=== PATIENT | female | born 2000 | race Caucasian/White ===

== ENCOUNTER → 2019-01-17 08:40 | Outpatient (CLI) | payer MEDICAID, SELFPAY ==
[2016-10-10 14:56] VITALS: BMI 29.7
[2019-01-17 09:01] LABS: Hemoglobin 11.8 g/dl (12.0-15.0); Mean Corp Hgb Conc 31.9 g/gl (32-36); Mean Corpuscular Hgb 26.9 pg (27.0-32.0); Mean Corpuscular Volume 84.5 fL (81-99); Platelet Count 330 K/mm3 (150-450); RBC Distribution Width CV 13.5 % (11.6-14.6); RBC Distribution Width SD 41.6 fl (35.1-43.9); Red Blood Count 4.38 M/mm3 (4.2-5.4); White Blood Count 9.5 K/mm3 (4.4-11.0)
[2019-01-17 09:06] LABS: Scan Indicated on CBC? Y/N NO
== END ==
PROVIDERS: Family Provider Pediatrics; PCP Pediatrics; Referring Provider Otolaryngology; Visit Provider Otolaryngology
DX: Z01.812 Encounter for preprocedural laboratory examination (principal)
CPT/HCPCS: 36415; 85027

== ENCOUNTER → 2019-01-22 15:44 | Outpatient (CLI) | payer MEDICAID, SELFPAY ==
[2016-10-10 14:56] VITALS: BMI 29.7
--- NOTE | 2019-01-21 12:14 | TONS_PTH ---
PATIENT: ADELA BURTON LOC: [facility] U#:[id number] AGE/SX: / ROOM: RE01/22/[address]: Dr. Anthony Shah MD : 2000 BED: DIS: SPEC #: [id number] RECD: 01/22/19 15:24 STATUS: WAQAS TACO #: [id number] REENA: 01/21/19 12:[address]: Anthony Shah DEPT: SURGICAL PATHOLOGY RECD BY: Brien Pleitez ENTERED: 01/23/19 10:28 SP TYPE: TONSILS OTHR DR: Dr. Micheal Meyers MD [facility] Tissues: Tonsil, NOS Procedures: Surgery Specimen Level III HEADER OPERATION: Tonsillectomy PRE-OP DIAGNOSIS: Chronic tonsillitis TISSUE SUBMITTED: Tonsils, right pinned MICROSCOPIC DIAGNOSIS Right and left tonsils, bilateral tonsillectomies: Benign lymphoid hyperplasia, consistent with chronic tonsillitis. Organisms consistent with actinomyces. AM:lázaro 01/24/19 MICROSCOPIC DESCRIPTION Slides are reviewed. GROSS DESCRIPTION Received is one container labeled with the patient's name and designated tonsils - pin on right are two tonsils that in aggregate weigh 8 gm. The right tonsil has a pin on it and measures 3 x 2 x 1 cm. The left tonsil measures 3 x 2 x 1.5 cm. Both tonsils are similar in appearance. The external surfaces are pink-fuller, smooth, glistening and somewhat lobulated. Focally they are hemorrhagic, granular and bear cautery artifact. Serial cross sections through the tonsils reveal normal tonsillar architecture. Sections are submitted in two cassettes as follows: 1 - right tonsil, 2 - left tonsil. / MERLY:lázaro 01/23/19 TC:5 CPT: 02123 x2
== END ==
PROVIDERS: Family Provider Pediatrics; PCP Pediatrics; Referring Provider Otolaryngology; Visit Provider Otolaryngology
DX: J35.01 Chronic tonsillitis (principal)
CPT/HCPCS: 88304

== ENCOUNTER → 2019-08-25 07:58 | Outpatient (CLI) | payer MEDICAID, SELFPAY ==
[2016-10-10 14:56] VITALS: BMI 29.7
--- NOTE | 2019-08-25 08:00 | CT_ITS ---
STUDY: CTA RIGHT UPPER EXTREMITIES REASON FOR EXAM: Female, 19 years old. Swelling and pain to right arm for 4 to 5 months. No history of trauma. History of fibromyalgia. RADIATION DOSAGE (If Supplied By Facility): CTDIvol = ( 18.38 ) mGy, DLP = ( 1629.91 ) mGycm TECHNIQUE: Axial CT angiography, multi-detector data acquisition was obtained from the neck base through the hands following intravenous administration of IV 100mL Isovue-370 100. mm axial images and MIP images were reconstructed from the axial data set. Post-processing of the angiographic images was performed, with multiplanar reformation and 3D reconstruction. Individualized dose optimization techniques were used for this CT. COMPARISON: None. FINDINGS: THORACIC AORTA: Normal visualized ascending thoracic aorta, without soft or calcific atherosclerotic plaque formation, luminal stenosis or aneurysm. Normal visualized aortic arch, without soft or calcific atherosclerotic plaque formation, or luminal stenosis or aneurysm. Normal branching pattern of the great vessels. Normal visualized descending thoracic aorta, without soft or calcific atherosclerotic plaque formation, luminal stenosis or aneurysm. Normal origins of the brachiocephalic, left common carotid, and left subclavian arteries from the aortic arch, without soft or calcific atherosclerotic plaque formation or luminal stenosis. Normal visualized common carotid arteries, without soft or calcific atherosclerotic plaque formation or luminal stenosis. Irregular noncalcified airspace opacity measuring 2.5 x 1.3 cm adjacent to the pleural surface superior segment right lower lobe axial image 61 series 3 as well as more inferior noncalcified lung nodule measuring 0.8 x 0.8 cm axial image 81 series 3. Normal visualized mediastinum. Normal supraclavicular region without lymphadenopathy or soft tissue mass. Normal axillary region, without lymphadenopathy or soft tissue mass. Normal visualized osseous structures without a demonstrated destructive process. RIGHT UPPER EXTREMITY: Normal subclavian artery, without soft or calcific atherosclerotic plaque formation, luminal stenosis or aneurysm. Normal visualized right vertebral artery arising from the right subclavian artery. Normal axillary artery, without soft or calcific atherosclerotic plaque formation, luminal stenosis or aneurysm. Normal brachial artery, without soft or calcific atherosclerotic plaque formation, luminal stenosis or aneurysm. Evaluation of the more distal arterial system is limited due to motion artifact in the forearm, wrist and hand. Osseous structures are normal. No fracture or dislocation. No demonstrated destructive process. Soft tissues are unremarkable. No focal fluid collections. No collections of air. CT/CTA Upper Ext W/WO Contrast IMPRESSION: Pleural-based right upper lobe 2.5 cm airspace opacity as well as 0.8 cm right lower lobe noncalcified lung nodule. These findings are probably secondary to infection. Correlate with CT of the chest. Comparison to prior chest x-rays would be helpful if available. Otherwise negative CT of the right upper extremity. Forearm and hand grossly normal however fine detail limited due to motion artifact. Osseous structures are normal. No focal fluid collections to suggest an abscess. No appreciable soft tissue swelling. Electronically Signed: Shadi Bradford MD at 0:07 EDT , Service support ,
== END ==
PROVIDERS: Family Provider Pediatrics; PCP Pediatrics; Referring Provider Surgery Vascular Surgery; Visit Provider Surgery Vascular Surgery
DX: R20.2 Paresthesia of skin (principal); M79.89 Other specified soft tissue disorders; M79.601 Pain in right arm; D18.00 Hemangioma unspecified site
CPT/HCPCS: 73206; Q9967

== ENCOUNTER → 2019-09-15 09:22 | Outpatient (CLI) | payer MEDICAID, SELFPAY ==
[2019-09-03 14:27] VITALS: BMI 49.6
--- NOTE | 2019-09-15 09:24 | US_ITS ---
STUDY: THYROID ULTRASOUND REASON FOR EXAM: Female, 19 years old. Enlarged thyroid gland. TECHNIQUE: Ultrasound evaluation of the thyroid was performed with real-time and static clifton-scale imaging. COMPARISON: None. FINDINGS: RIGHT LOBE: The right lobe of the thyroid gland measures 4.5 cm x 1.8 cm x 1.6 cm. There is a homogeneous echotexture. There are no demonstrated solid, cystic or complex lesions. LEFT LOBE: The left lobe of the thyroid gland measures 4.2 cm x 1.5 cm x 1.6 cm. There is a homogeneous echotexture. There is a solid well-defined hypoechoic nodule measuring 9 mm x 7 mm x 6 mm in the midportion of the left lobe of the thyroid. This may represent a colloid. ISTHMUS: The isthmus measures 3.0 mm. The regional lymph nodes are normal. US/Thyroid IMPRESSION: 9 mm x 7 mm x 6 mm well-defined hypoechoic solid nodule in the midportion of the left lobe of the thyroid. Electronically Signed: Juan Howell, at 15:13 EST , Service support ,
== END ==
PROVIDERS: Family Provider Internal Medicine; PCP Internal Medicine; Referring Provider Internal Medicine; Visit Provider Internal Medicine
DX: E04.1 Nontoxic single thyroid nodule (principal)
CPT/HCPCS: 76536

== ENCOUNTER → 2019-10-24 10:54 | Outpatient (CLI) | payer MEDICAID, SELFPAY ==
[2019-10-24 10:35] VITALS: BMI 49.6
[2019-10-24 13:40] LABS: Absolute Lymphocyte Count 3.17 X10^3/uL (0.83-4.51); Absolute Neutrophil Count 4.8 X10^3/uL (2.0-7.7); Basophil# 0.04 X10^3/uL; Basophil% 0.5 % (0-1); Eosinophils% 3.4 % (0-5); Hematocrit 39.8 % (37-47); Hemoglobin 12.5 g/dL (12.0-15.0); Lymphocyte # 3.17 X10^3/ul (4.0); Lymphocyte % 35.8 % (19-41); Mean Corp Hgb Conc 31.4 g/dL (32-36); Mean Corpuscular Hgb 26.4 pg (27.0-32.0); Mean Corpuscular Volume 84.1 fL (81-99); Mean Platelet Vol. 10.6 fl (6.2-12.0); Monocyte# 0.49 X10^3/uL; Monocyte% 5.5 % (0-10); NRBC Flagged by Analyzer 0 % (0-5); Neutrophil # 4.83 X10^3/uL (2.7-7.7); Neutrophil % 54.6 % (47-70); Platelet Count 338 K/mm3 (150-450); RBC Distribution Width CV 13.5 % (11.6-14.6); RBC Distribution Width SD 41.8 fl (35.1-43.9); Red Blood Count 4.73 M/mm3 (4.2-5.4); White Blood Count 8.9 K/mm3 (4.4-11.0)
[2019-10-24 13:55] LABS: ALB/GLOB Ratio 0.7 RATIO (0.9-2.4); AST(SGOT) 10 U/L (15-37); Alanine Aminotransfer ALT/SGPT 25 U/L (13-56); Albumin, Serum 3.2 g/dL (3.2-5.0); Alkaline Phosphatase 117 U/L (45-117); Anion Gap 6 (5-15); BUN 12 mg/dL (7-18); BUN/Creat Ratio 16.2 RATIO (10-20); Calcium,Total 8.6 mg/dL (8.5-10.1); Chloride 106 mmol/L (98-107); Creatinine, Serum 0.74 mg/dL (0.55-1.02); EST Glomerular Filtration Rate 106 mL/min (>60); Est Glom Filt Rate - Afr Amer 128 mL/min (>60); Globulin 4.4 g/dL (2.2-4.2); Glucose 99 mg/dL (74-106); Potassium 3.9 mmol/L (3.5-5.1); Protein, Total 7.6 g/dL (6.4-8.2); Sodium Level 137 mmol/L (136-145); T4 Free Direct 1.21 ng/dL (0.76-1.46)
== END ==
PROVIDERS: Family Provider Internal Medicine; PCP Internal Medicine; Visit Provider Internal Medicine
DX: Z13.29 Encounter for screening for other suspected endocrine disorder (principal); K21.9 Gastro-esophageal reflux disease without esophagitis; D64.9 Anemia, unspecified
CPT/HCPCS: 36415; 80053; 84439; 84443; 85025

== ENCOUNTER → 2019-11-17 07:06 | Outpatient (CLI) | payer MEDICAID, SELFPAY ==
[2019-09-03 14:27] VITALS: BMI 49.6
[2019-10-24 10:35] VITALS: BMI 49.6
--- NOTE | 2019-11-17 07:07 | CT_ITS ---
STUDY: CT CHEST WITHOUT CONTRAST REASON FOR EXAM: Female, 19 years old. LUNG NODULE SEEN ON PREV CT RADIATION DOSAGE (If Supplied By Facility): CTDIvol = ( 20.15 ) mGy, DLP = ( 725.01 ) mGycm TECHNIQUE: Transaxial imaging was performed without the administration of intravenous contrast material. Multiplanar coronal and sagittal images were reformatted. Individualized dose optimization techniques were used for this CT. COMPARISON: Comparison is made with prior CT scan of the right upper extremity. FINDINGS: The previously seen airspace opacity in the posterior aspect of the right upper lobe is not seen at this time. There is no demonstrated pleural abnormality. Normal heart and pericardium. Normal mediastinum. Normal hilar regions. Normal unenhanced pulmonary arteries. Normal aorta arch and descending thoracic aorta. Normal osseous structures. There is no demonstrated abnormality of the visualized upper abdomen. CT/Chest without Contrast IMPRESSION: Normal unenhanced CT Chest examination. Electronically Signed: Juan Howell, at 15:57 EST , Service support ,
== END ==
PROVIDERS: Family Provider Internal Medicine; PCP Internal Medicine; Referring Provider Internal Medicine; Visit Provider Internal Medicine
DX: R93.89 Abnormal findings on diagnostic imaging of other specified body structures (principal); R91.1 Solitary pulmonary nodule
CPT/HCPCS: 71250

== ENCOUNTER → 2019-12-10 10:06 | Outpatient (CLI) | payer MEDICAID, SELFPAY ==
[2019-12-10 09:30] VITALS: BMI 49.5
--- NOTE | 2019-12-10 10:08 | EKG12_ITS ---
Test Reason : PALPS/CP Blood Pressure : / mmHG Vent. Rate : 092 BPM Atrial Rate : 092 BPM P-R Int : 138 ms QRS Dur : 092 ms QT Int : 354 ms P-R-T Axes : 014 012 018 degrees QTc Int : 437 ms Normal sinus rhythm Normal ECG Confirmed by PURVI MUÑIZ ([id number]), movie editor NEO WESTON ([id number]) on 12/12/2019 9:50:11 AM Referred By: Servando Maria Confirmed By:PURVI MUÑIZ
[2019-12-10 11:41] LABS: Anion Gap 6 (5-15); BUN 11 mg/dL (7-18); BUN/Creat Ratio 15.6 RATIO (10-20); Calcium,Total 9.5 mg/dL (8.5-10.1); Chloride 107 mmol/L (98-107); EST Glomerular Filtration Rate 112 mL/min (>60); Est Glom Filt Rate - Afr Amer 136 mL/min (>60); Glucose 98 mg/dL (74-106); Magnesium 2.2 mg/dL (1.6-2.6); Potassium 4.1 mmol/L (3.5-5.1); Sodium Level 138 mmol/L (136-145); T4 Free Direct 1.09 ng/dL (0.76-1.46); Thyroid Stim Hormone (TSH) 6.37 uIU/mL (0.358-3.74)
== END ==
PROVIDERS: PCP Internal Medicine; Referring Provider Nurse Practitioner Family; Visit Provider Nurse Practitioner Family
DX: R00.2 Palpitations (principal); R07.9 Chest pain, unspecified
CPT/HCPCS: 36415; 80048; 83735; 84439; 84443; 93005

== ENCOUNTER → 2019-12-17 09:03 | Outpatient (CLI) | payer MEDICAID, SELFPAY ==
[2019-12-10 16:41] VITALS: BMI 49.6
== END ==
PROVIDERS: PCP Internal Medicine; Referring Provider Nurse Practitioner Family; Visit Provider Nurse Practitioner Family
DX: R00.2 Palpitations (principal); R07.9 Chest pain, unspecified
CPT/HCPCS: 93225; 93226

== ENCOUNTER 2020-04-08 07:22 | Day surgery (SDC) | payer MEDICAID, SELFPAY ==
[2019-12-10 16:41] VITALS: BMI 49.6
[2020-03-23 13:11] VITALS: BMI 49.6
[2020-04-06 15:20] LABS: Hematocrit 38.8 % (37-47); Hemoglobin 12.4 g/dL (12.0-15.0); Mean Corpuscular Hgb 26.8 pg (27.0-32.0); Mean Platelet Vol. 10.6 fl (6.2-12.0); Platelet Count 361 K/mm3 (150-450); RBC Distribution Width CV 13.2 % (11.6-14.6); RBC Distribution Width SD 39.4 fl (35.1-43.9); Red Blood Count 4.62 M/mm3 (4.2-5.4); White Blood Count 9.5 K/mm3 (4.4-11.0)
[2020-04-06 15:39] LABS: T4 Free Direct 1.19 ng/dL (0.76-1.46)
[2020-04-06 15:41] LABS: Thyroid Stim Hormone (TSH) 2.42 uIU/mL (0.358-3.74)
[2020-04-06 15:42] LABS: Prothrombin Time (Protime)PT. 12.6 SECONDS (11.7-14.9)
[2020-04-06 15:43] LABS: Partial Thromboplast Time 28.9 Seconds (24.1-36.2)
--- NOTE | 2020-04-07 21:56 | PCM.HPOB.BLA ---
- Problem List (1) Chronic pelvic pain in female Status: Chronic Comment: r/o endometriosis History and Physical Date of Admission: 04/08/20 Date: 04/06/2020 Name: YULIANA BURTON Age: 19 Date of : 2000 HISTORY OF PRESENT ILLNESS: On 04/06/2020, Yuliana Burton, a 19 year old female 0 0 0 0 0, presented for: -- Pre-Op -- Yuliana is here for pre-op exam. Consents are signed, will review further with Dr GRIDER surgical risks and benefits. LMT as above. Yuliana is here for preop visit for scheduled diagnostic laparoscopy to r/o endometriosis. She has a hx dysmenorrhea with chronic pelvic pain despite extended cycle OCP. niki ALLERGIES: No Known Drug Allergies, Omnicef and Hives and/or rash MEDICATIONS HISTORY: Current medications prescribed by our practice are: 1. Apri 0.15 mg-0.03 mg tablet, One pill by mouth once a day for 3 wks then start new pack Patient is also takin. lansoprazole 30 mg capsule,delayed release, 1 PO QD 2. levothyroxine 100 mcg tablet, One pill by mouth once a day REVIEW OF SYSTEMS: GENERAL - Denies fever, or chills SKIN - Denies skin changes EYES - Denies visual changes EARS - Denies difficulty hearing NOSE - Denies nasal congestion or bleeding MOUTH - Denies sore throat or difficulty swallowing NECK - Denies pain or swelling RESPIRATORY - Denies shortness of breath or wheezing CARDIOVASCULAR - Denies palpitations or chest pain GASTROINTESTINAL - Denies nausea, vomiting, diarrhea, constipation GENITOURINARY - Denies dysuria, frequency of urination, incontinence of urine MUSCULOSKELETAL - Denies joint or muscle pain NEUROLOGICAL - Denies localized numbness or weakness PSYCHIATRIC - Denies depression or anxiety ENDOCRINE - Denies heat or cold intolerance, weight loss or gain HEMATO-IMMUNOLOGIC - Denies excesive bleeding with cuts PAST HISTORY: Breast/Ovarian/Colon Cancers - Mother had Uterine Cancer Illnesses - fibromyalgia, bilateral renal duplication, hypothyroidism, thyroid nodule and Lorena's Thyroiditis Accidents - None History of Abnormal PAPS - na Hospitalizations - None MENSTRUAL HISTORY: LMP Known?- ApproximateAmount/Duration - 6 days, Regularity - regular, Frequency - monthly days, LMP - 08/26/19, Age Onset Menarche - 10 PAST PREGNANCIES: Total Pregnancies - 0; Full Term Pregnancies - 0; Premature - 0; Abortions, Induced - 0; Abortions, Spontaneous - 0; Ectopics - 0; Multiple Births - 0; Living Children - 0 FAMILY HISTORY: Mother - FH: Endometriosis; Mother - Neoplasm of uterus; Mother - FH: Hypertension; MaternalGrandparent - Heart disorder; PaternalGrandparent - Leukemia; PaternalGrandparent - Heart disorder; SOCIAL HISTORY: Alcohol Use - denies drinking Smoking - denies smoking Diet - no particular diet Lifestyle - moderate stress lifestyle Exercise - none Seat Belt Use - always Employer - [employer] Job Description - critical care nurse specialist Illicit Drug Use - denies use of street drugs Sexual Activity - sexually inactive Residence - Lives wit parents Hours Worked - PT Control - OCP not active PHYSICAL EXAMINATION BP- 130/82 Sitting, Left arm, large cuff Temp- 98.7 Taken Orally Weight- 351.00 lbs Height- 70.00 inch BMI:50.47 CONSTITUTIONAL - NAD, well nourished, and well developed SKIN - No rash, lesions, or ulcers HEENT - normocephalic, atraumatic, sclerae anicteric LUNGS - clear to ausculation bilaterally CARDIAC - RRR, S1, S2 no m/r/g ABDOMEN - obese, soft, nontender, nondistended, unable to assess for hepatosplenomegaly NEUROLOGICAL - normal gait, normal balance, normal motor PSYCHIATRIC - A and O to time, place, person, mood and affect Laboratory Tests 04/07/20 04/06/20 04/06/20 Range/Units 10:00 15:04 15:04 WBC (4.4-11.0) K/mm3 RBC (4.2-5.4) M/mm3 Hgb (12.0-15.0) g/dL Hct (37-47) % MCV (81-99) fL MCH (27.0-32.0) pg MCHC (32-36) g/dL RDW Std Deviation (35.1-43.9) fl RDW Coeff of Brittani (11.6-14.6) % Plt Count (150-450) K/mm3 MPV (6.2-12.0) fl PT (11.7-14.9) SECONDS INR APTT (24.1-36.2) Seconds TSH 2.42 (0.358-3.74) uIU/mL Free T4 1.19 (0.76-1.46) ng/dL COVID-19 (MARYANA) Not Detected (Not Detect) Blood Type Antibody Screen 04/06/20 04/06/20 04/06/20 Range/Units 15:01 15:00 15:00 WBC 9.5 (4.4-11.0) K/mm3 RBC 4.62 (4.2-5.4) M/mm3 Hgb 12.4 (12.0-15.0) g/dL Hct 38.8 (37-47) % MCV 84.0 (81-99) fL MCH 26.8 L (27.0-32.0) pg MCHC 32.0 (32-36) g/dL RDW Std Deviation 39.4 (35.1-43.9) fl RDW Coeff of Brittani 13.2 (11.6-14.6) % Plt Count 361 (150-450) K/mm3 MPV 10.6 (6.2-12.0) fl PT 12.6 (11.7-14.9) SECONDS INR 1.0 APTT 28.9 (24.1-36.2) Seconds TSH (0.358-3.74) uIU/mL Free T4 (0.76-1.46) ng/dL COVID-19 (MARYANA) (Not Detect) Blood Type O POSITIVE Antibody Screen NEGATIVE ASSESSMENT: PLAN BY DIAGNOSIS: 1. Dysmenorrhea, Unspecified, Excessive And Frequent Menstruation With Irregular Cycle, Lower Abdominal Pain and Unspecified Suspect endometriosis Prior US unremarkable Plan for diagnostic laparoscopy and EUA, surgical treatment of endometriosis as indicated. Will refer to advanced excision specialist if Stage III/IV disease evident Reviewed preop prep, anticipated hospitalization and postop recovery course Procedural r/b/i/a reviewed Pt in agreement with plan Preop labs ordered, COVID19 testing pending
[2020-04-08] VITALS (8 sets, daily range): BP systolic 130–160; BP diastolic 59–107; PULSE 106–133; RESP 16–24; TEMP 36.1–37.2; O2SAT 94–100; BMI 49.6
--- NOTE | 2020-04-08 | MISC_PTH ---
PATIENT: ADELA BURTON [place] [facility] [place][id number] AGE/SX: 19/F ROOM: RE04/08/[address]: Dr. Fay Montez MD : 2000 BED: DIS: 04/08/2020 SPEC #: [id number] RECD: 04/08/20 13:12 STATUS: WAQAS RELyndsey #: [id number] REENA: 04/08/20 00:[address]: Fay Hager DEPT: SURGICAL PATHOLOGY RECD BY: Andrade Mclean ENTERED: 04/08/20 13:13 [place] [facility] [place]: Dr. Raji Edwards MD Tissues: Perineum, NOS Procedures: Surgery Specimen Level IV HEADER OPERATION: Diagnostic laparoscopy PRE-OP DIAGNOSIS: Dysmenorrhea; excessive and frequent menstruation TISSUE SUBMITTED: Anterior pelvis sac peritoneum MICROSCOPIC DIAGNOSIS Anterior pelvic sac peritoneum, biopsy: Consistent with endometriosis with associated dystrophic microcalcifications. See comment. AM:lázaro 04/09/20 COMMENT Immunohistochemistry ([id number]) supports the above diagnosis. Case has been reviewed in consultation with Dr. Mak who concurs with the above diagnosis. IDC:[email or web address] MICROSCOPIC DESCRIPTION Slides are reviewed. GROSS DESCRIPTION Received in fixative is one container labeled with the patient's name and designated anterior pelvis sac peritoneum. The specimen consists of one irregular fragment of fuller soft tissue that measures 1.4 x 1 x 0.2 cm. The specimen is totally submitted in one cassette. / MERLY:lázaro 04/08/20 TC:3 CPT: 97011
--- NOTE | 2020-04-08 | IMM_PTH ---
PATIENT: ADELA BURTON LOC: [facility] [place] U#:[id number] AGE/SX: 19/F ROOM: RE04/08/[address]: Dr. Fay Montez MD : 2000 BED: DIS: 04/08/2020 SPEC #: [id number] RECD: 04/09/20 11:49 STATUS: WAQAS REQ #: [id number] REENA: 04/08/20 00:[address]: Fay Hager DEPT: IMMUNOHISTOCHEMISTRY RECD BY: Randi Roa ENTERED: 04/09/20 11:51 SP TYPE: IMMUNO OTHR DR: Dr. Raji Edwards MD Tissues: Peritoneum, NOS Procedures: Devon Ret (add) CEA (add) CK5-6 (add) CK8 (add) P53 (add) Vimentin (initial) PHYSICIAN & INSTITUTION [place] [id number] SPECIMEN INFORMATION: Tissue Source: Anterior pelvic sac peritoneum Clinical Info: Dysmenorrhea, excessive and frequent menstruation Specimen Number: [id number] CPT code: 69160, 12848 x5 METHODOLOGY: Deparaffinized sections of prefer/formalin-fixed tissue or PAP/DQ stained slides are incubated with monoclonal/polyclonal antibodies/oligonucleotide probes. Localization is made via biotin free immunoperoxidase method. Appropriate controls are performed and reacted as expected. Results on target cell population are indicated in the following table: RESULTS: ANTIBODY / CLONE RESULT CEA (11-7/TF-3HB-1) negative Vimentin (V9) positive CK8 (32kkhqH77) positive P53 (DO-7) negative CALRET (polyclonal) negative CK5-6 (D5 & 1684) negative These tests were developed and their performance characteristics determined by [facility]. They may not have been cleared or approved by the U.S. Food and Drug Administration. The FDA has determined that such clearance or approval is not necessary. The above immunohistochemical/dualISH markers are ordered and reviewed by the Pathologist. INTERPRETATION: Anterior pelvic sac peritoneum, biopsy: Consistent with endometriosis. AM:lázaro 04/12/20
[2020-04-08 07:57] LABS: Internal QC Validated? YES +Cl - CLEAR BKGD; Pregnancy, Urine Negative Negative
[2020-04-08] MEDS: Lactated Ringers 1,000 ML 100 ML IV ×2 (08:01→10:00)
[2020-04-08] MEDS: Bupivacaine Mpf 0.5% 30 ML VIAL (09:35)
--- NOTE | 2020-04-08 10:40 | DCINST_ITS ---
- Discharge Diagnoses Current Active Problems: Endometriosis Reason(s) for Visit for Discharge Instructions: Laparoscopy You will use the following diet at home:: No restrictions Your food should be the consistency of: Regular Discharge Activity: Return to Normal Activity, May not drive while taking narcotic pain medications., May Shower, - - No tub bath for 1-2 weeks May resume sexual activity in: 4-6 weeks Lifting Restrictions: 10-20 lb Call your doctor if you observe: Fever of 101 or Higher, Inability to urinate, Inability to have a bowel movement, Using more than one pad per hour, Shortness of breath, Chest pain, Calf discomfort, Uncontrolled pain Suture Line Care: Avoid Pulling/Pushing Remove Dressing in (days):: 1 - remove steri stips in 5 days Cleanse incision/area with: Soap & Water Instructions: ED Endometriosis Allergies/Adverse Reactions: Allergies cefdinir [From Omnicef] Allergy (Intermediate, Verified 04/08/20 07:50) Hives Medications to take at Discharge lansoprazole 30 mg capsule,delayed release 30 mg PO DAILY 09/03/19 levothyroxine 100 mcg tablet 100 mcg PO DAILY #30 tab 03/23/20 Desogestrel-Ethinyl Estradiol [Enskyce 28 Tablet] 1 ea PO DAILY 04/01/20 Ibuprofen 600 mg PO TID PRN #30 tab 04/08/20 Oxycodone [Oxyir] 5 mg PO Q6H PRN PRN 7 Days #12 tablet 04/08/20 The following prescriptions were given: Ibuprofen 600 mg PO TID PRN #30 tab PRN Reason: pain Transmission Status[facility]. Oxycodone [Oxyir] 5 mg PO Q6H PRN PRN 7 Days #12 tablet PRN Reason: severe pain Transmission Status: Received by [facility] . Orders to be completed after discharge: CORONAVIRUS 19, MARYANA Time Frame: 04/07/20, Facility: [facility], Location: Laboratory Primary Care Physician: Raji Edwards MD [Primary Care Provider] - Test Results: Test results from this visit will be discussed in further detail at your follow- up appointment, if applicable. Please Follow Up With: Fay Malloy MD When: 2-4 weeks
--- NOTE | 2020-04-08 10:46 | PCM.OPRPT ---
Problem List (1) Chronic pelvic pain in female Status: Chronic Comment: r/o endometriosis Report of Operation Date of Procedure: 04/08/20 Pre-Operative Diagnosis: 1. chronic pelvic pain. 2. dysmenorrhea. 3. endometriosis Post-Operative Diagnosis: same Surgery/Procedure Performed:: Diagnostic laparoscopy. Peritoneal biopsy. Excision of endometriosis Description of Surgical Findings:: Stage III endometriosis Thickened anterior culdesac adhesion Left adnexal adhesions Vesicular peritoneal lesion at anterior culdesac peritoneum, left posterior broad ligament Red endometriotic lesions in left ovarian fossa Sigmoid peritoneal adhesions shearer printed circuit boards: Ciera Laguna Type of Anesthesia:: General, Local Anesthesiologist: Rafal Lees Specimen's removed: 1. anterior culdesac peritoneum Estimated Blood Loss (mL): 10 Fluids Replaced: 1600 ml Description of Procedure: Indications: 19-year-old nulligravida with a history of chronic pelvic pain and and dysmenorrhea. She has been treated with oral contraceptive pills including extended cycle OCP with little improvement of symptoms. She was advised to proceed with diagnostic laparoscopy to rule out endometriosis. I reviewed with her surgical risks, benefits, indications and alternatives. Patient desired to proceed. Informed consent was obtained. Procedure: The patient was brought to the operating room and signed was performed. She is placed in a dorsal supine position and induced under general anesthesia. She was then repositioned into dorsolithotomy and examination under anesthesia was performed. The abdomen and perineum were prepped and draped in sterile fashion. Patient was placed into high lithotomy and Jaeger catheter placed into the bladder. A speculum was placed cervix grasped at the anterior cervical lip using a single-tooth tenaculum. The uterus sounded to 9 cm. A ZUMI uterine manipulator was placed and secured. The tenaculum was removed from the cervix as was the tenaculum. Patient was placed into low lithotomy attention turned to the abdomen. Half percent Marcaine was injected at at the umbilicus and an inferior umbilical incision was made. The Veress needle was introduced with successful hanging drop test and no aspirate. The abdomen was insufflated to 12 mmHg. The Veress needle was removed and a 5 mm port was placed under laparoscopic guidance confirming entry into the abdominal cavity. On initial view it appeared that the omentum had encased the abdominal peritoneum. A clearing within the omentum leading to the pelvis was identified and the laparoscope was used to perforate the filmy adhesion entering the pelvis. On observation the uterus was mobile however there were left ovarian fossa adhesions with red endometriosis lesions, left sigmoid fusion, anterior cul-de-sac thickened adhesions with vesicular endometriosis as well as multiple sites of vesicular peritoneal endometriosis. Marcaine was placed suprapubically and incision was made here. A 5 mm port was placed suprapubically. I proceeded with anterior cul-de-sac peritoneal excision for biopsy. The ear cul-de-sac peritoneum was bluntly and sharply dissected with excision. The excisional bed was irrigated and suctioned with good hemostasis. Interceed was placed at the site. The abdomen was again inspected and it appeared that the omental adhesion had lysed over the course of the procedure I suspect due to movement of the umbilical trocar. The procedure was complete. The abdomen was desufflated and the patient was given several large breaths for further desufflation. The trocars were removed. The skin was closed by the [employer] under my supervision using 4-0 Monocryl. Steri-Strips and OpSite were placed over the incisions. The ZUMI uterine manipulator was removed was the Jaeger catheter. The patient was placed into dorsal supine, awakened, extubated and transferred to the recovery room without complication. Sponge and needle counts were correct x2. - Complications None - Admit VTE Documentation VTE Present on Admission: No VTE Mechan Device Prophylaxis: SCD's VTE Pharm Prophylaxis ordered?: Yes
[2020-04-08] MEDS: Heparin Injection (Vial) 5,000 UNIT/ML VIAL 5000 UNIT SC (11:21)
== END 2020-04-08 13:20 | disposition home or self-care (01) ==
LOC: SDC 07:23 → AC 07:23
PROVIDERS: Anesthesiology; Internal Medicine Endocrinology, Diabetes & Metabolism; PCP Internal Medicine; Referring Provider Obstetrics & Gynecology; Visit Provider Obstetrics & Gynecology
PROC: (CPT 49320; principal; 2020-04-08 08:45)
DX: N80.3 Endometriosis of pelvic peritoneum (principal); N94.6 Dysmenorrhea, unspecified; N92.0 Excessive and frequent menstruation with regular cycle; G89.29 Other chronic pain; E06.3 Autoimmune thyroiditis; M79.7 Fibromyalgia; Z11.59 Encounter for screening for other viral diseases
CPT/HCPCS: 58662; 81025; 84439; 84443; 85027; 85610; 85730; 86850; 86900; 86901; 87635; 88305; 88341; 88342; G2023; J7120; J2405; U0003

== ENCOUNTER → 2020-04-19 | Outpatient (CLI) | payer MEDICAID, SELFPAY ==
[2020-04-08 07:51] VITALS: BMI 49.6
== END | disposition home or self-care (01) ==
LOC: LABSPEC 16:51
PROVIDERS: PCP Internal Medicine; Visit Provider Obstetrics & Gynecology
DX: R35.0 Frequency of micturition (principal)
CPT/HCPCS: 87086; 87088

== ENCOUNTER → 2020-08-30 13:18 | Outpatient (CLI) | payer MEDICAID, SELFPAY ==
[2020-08-30 13:06] VITALS: BMI 47.8
[2020-08-30 15:04] LABS: Hematocrit 37.5 % (37-47); Hemoglobin 12.2 g/dL (12.0-15.0)
[2020-08-30 15:37] LABS: Thyroid Stim Hormone (TSH) 5.25 uIU/mL (0.358-3.74)
== END ==
PROVIDERS: PCP Internal Medicine; Visit Provider Internal Medicine Endocrinology, Diabetes & Metabolism
DX: E03.8 Other specified hypothyroidism (principal); E06.3 Autoimmune thyroiditis; E04.1 Nontoxic single thyroid nodule; N92.0 Excessive and frequent menstruation with regular cycle
CPT/HCPCS: 36415; 84443; 85014; 85018

== ENCOUNTER → 2020-10-26 13:54 | Outpatient (CLI) | payer MEDICAID, SELFPAY ==
[2020-08-30 13:06] VITALS: BMI 47.8
--- NOTE | 2020-10-26 13:55 | US_ITS ---
STUDY: THYROID ULTRASOUND REASON FOR EXAM: Female, 20 years old. F/U NODULE, HX OF RAFAEL''S TECHNIQUE: Ultrasound evaluation of the thyroid was performed with real-time and static clifton-scale imaging. COMPARISON: 09/15/2019. FINDINGS: RIGHT LOBE: The right lobe of the thyroid gland measures 4.5 x 1.9 x 1.6 cm. There is a homogeneous echotexture. There is a 4 mm hypoechoic probable colloid cyst. LEFT LOBE: The left lobe of the thyroid gland measures 4.4 x 1.5 x 1.4 cm. There is a homogeneous echotexture. There is a 5 mm hypoechoic nodule, smaller than prior study. ISTHMUS: The isthmus measures 3 mm . The regional lymph nodes are normal. US/Thyroid IMPRESSION: Normal size thyroid gland with bilateral subcentimeter nodules. Annual follow-up would be adequate. Electronically Signed: Casimiro Nunez MD at 16:09 EST , Service support ,
== END ==
PROVIDERS: PCP Internal Medicine; Referring Provider Internal Medicine Endocrinology, Diabetes & Metabolism; Visit Provider Internal Medicine Endocrinology, Diabetes & Metabolism
DX: E03.8 Other specified hypothyroidism (principal); E06.3 Autoimmune thyroiditis; E04.1 Nontoxic single thyroid nodule; N92.0 Excessive and frequent menstruation with regular cycle
CPT/HCPCS: 76536

== ENCOUNTER → 2021-03-17 14:46 | Outpatient (CLI) | payer MEDICAID, SELFPAY ==
[2021-02-09 14:26] VITALS: BMI 51.4
--- NOTE | 2021-03-17 14:55 | CT_ITS ---
STUDY: CT MAXILLOFACIAL SINUSES REASON FOR EXAM: Female, 20 years old. SINUSITIS RADIATION DOSAGE (If Supplied By Facility): CTDIvol = ( 33.06 ) mGy, DLP = ( 850.38 ) mGycm TECHNIQUE: The patient was scanned in a multi detector CT scanner. High resolution axial imaging was performed without the administration of intravenous contrast material. Sagittal and coronal images were reconstructed. Individualized dose optimization techniques were used for this CT. COMPARISON: None. FINDINGS: FRONTAL SINUSES: Normal aeration, without mucosal inflammatory disease. ETHMOIDAL SINUSES: Normal aeration, without mucosal inflammatory disease. MAXILLARY SINUSES: Normal aeration, without mucosal inflammatory disease. SPHENOIDAL SINUSES: Normal aeration, without mucosal inflammatory disease. There is patency of the bilateral maxillary infundibuli with normal uncinate processes, ethmoid bullae, and hiatus semilunaris. Normal bilateral middle turbinates. Normal bilateral inferior turbinates. Normal midline nasal septum. There is patency of the bilateral nasal airways. The visualized osseous structures are normal. The visualized bilateral orbital contents are normal. CT/Sinus/Facial Bone IMPRESSION: Normal CT examination of the maxillofacial sinuses. Electronically Signed: Juan Howell MD at 15:09 EDT , Service support ,
== END ==
PROVIDERS: PCP Internal Medicine; Referring Provider Otolaryngology; Visit Provider Otolaryngology
DX: J32.9 Chronic sinusitis, unspecified (principal)
CPT/HCPCS: 70486

== ENCOUNTER → 2021-05-03 13:01 | Outpatient (CLI) | payer MEDICAID, SELFPAY ==
[2021-04-05 08:11] VITALS: BMI 51.4
[2021-05-03 16:00] LABS: T4 Free Direct 1.21 ng/dL (0.76-1.46)
== END ==
PROVIDERS: PCP Internal Medicine; Referring Provider Internal Medicine Endocrinology, Diabetes & Metabolism; Visit Provider Internal Medicine Endocrinology, Diabetes & Metabolism
DX: E03.8 Other specified hypothyroidism (principal); E06.3 Autoimmune thyroiditis
CPT/HCPCS: 36415; 84439; 84443

== ENCOUNTER 2021-05-07 17:24 | Emergency (ER) | payer MEDICAID, SELFPAY ==
[2021-04-05 08:11] VITALS: BMI 51.4
[2021-05-07 17:26] VITALS: BP 161/116; PULSE 67; RESP 12; TEMP 36.1; O2SAT 98; BMI 52.0
--- NOTE | 2021-05-07 17:54 | EX.ED.DYSGE1 ---
HPI History of Present Illness Chief Complaint: Other, Pain/Inj Informant: patient Onset/Context/Timing Onset: Days (3) Context: Gradual Onset Timing: Continuous Quality: Dull, aching, sharp at times Location: Left wrist, right calf Worsened by: Grasping Relieved by: Nothing Narrative Narrative: Patient presents with pain in her left wrist and right calf that has been getting worse over the past 2 days. Patient states she had surgery at the main [facility] of [facility] on 05/04/2021 for appendectomy and endometriosis. Patient states that they tried [address] an art line at the time of surgery. Patient admits to some tingling in her left wrist and hand. Patient states she has some weakness when she tries to grasp things. Family states that when they remove the art line they applied some pressure for a few seconds and then applied a blood pressure cuff to measure her blood pressure over the radial artery. At that time, the bleeding became worse and a pressure dressing was applied. Patient states she called the [facility] Careline and was told that if her symptoms last for more than 48 hours after her surgery she should go to the emergency department for evaluation. [facility] Medical History Anemia Anxiety Back problem BILATERAL RENAL DUPLICATION Chronic neck pain Endometriosis determined by laparoscopy Fibromyalgia Frequent headaches GERD (gastroesophageal reflux disease) Muscle spasm Home Medications ibuprofen 600 mg PO TID PRN #30 tab 04/08/20 [Rx Last Taken Unknown] fluoxetine 20 mg capsule 20 mg PO DAILY #30 cap 05/06/20 [Rx Last Taken Unknown] norethindrone acetate 0.5 mg-ethinyl estradiol 2.5 mcg tablet 2 tab PO DAILY tab 08/30/20 [History Last Taken Unknown] naproxen 500 mg tablet 500 mg PO BID PRN #60 tab 11/24/20 [Rx Last Taken Unknown] propranolol 80 mg capsule,24 hr,extended release 80 mg PO DAILY #90 cap 01/12/21 [Rx Last Taken Unknown] pantoprazole 40 mg tablet,delayed release 40 mg PO DAILY #90 tablet 02/09/21 [Rx Last Taken Unknown] cyclobenzaprine 10 mg tablet 5 - 10 mg PO HS PRN #30 tab 04/05/21 [Rx Last Taken Unknown] levothyroxine 125 mcg tablet 125 mcg PO DAILY #90 tab 05/05/21 [Rx Last Taken Unknown] Allergy/AdvReac Type Severity Reaction Status Date / Time cefdinir [From Omnicef] Allergy Intermediate Hives Verified 05/07/21 17:26 Family History Other Anemia Angina pectoris Anxiety Arthritis Autoimmune disorder Bleeding disorder Depression Heart disease High cholesterol Hypertension Myocardial infarction Uterine cancer Surgical History History of appendectomy History of laparoscopy History of tonsillectomy Social History Smoking Status: Never smoker alcohol intake: never substance use type: does not use what type of physical activity do you participate in: none ROS ROS ED Constitutional Constitutional ED: Denies chills or fever(s) Eyes Eyes: Denies blurry vision or change in vision ENT ENT ED: Denies rhinorrhea or sore throat Cardiovascular Cardiovascular: Denies chest pain or palpitations Respiratory/Chest Respiratory/Chest: Denies cough or dyspnea Gastrointestinal Gastrointestinal: Denies nausea or vomiting Genitourinary Genitourinary ED: Denies dysuria or hematuria Musculoskeletal Musculoskeletal: Denies back pain or neck pain Integumentary Denies abscess or rash Neurologic Neurologic: Reports paresthesias and weakness; Denies headache(s) Allergic/Immunologic Allergic/Immunologic ED: Denies mouth swelling or urticaria EXAM Physical Exam Const Vital Signs: 05/07/21 17:26 Temperature 97 F L Temperature Source Temporal Pulse Rate 67 Respiratory Rate 12 Blood Pressure 161/116 H Blood Pressure Mean 131 Pulse Ox 98 Oxygen Delivery Method Room Air Positive well nourished, well developed and obese General Appearance ED: well developed Nutritional Appearance: obese Neck supple and no JVD Extremity Extremity Narrative: There is some mild tenderness over the volar and radial aspects of the left wrist. There is edema and ecchymosis over this area. Radial pulses are equal bilaterally. Ulnar pulse is good on the left. Efrain's test was negative. Sensation was slightly diminished to light touch in all digits of the left hand. There is some mild pain over the left forearm. There is no induration. There is no evidence of compartment syndrome compartments are soft. There is good range of motion of the left wrist and elbow. There is some mild tenderness over the right distal calf. There is some edema. There is no ecchymosis. Pedal pulses are equal bilaterally. There are no sensory deficits. Neuro oriented x3 and CN's II-XII intact bilaterally Neuro Narrative: Nurse Anesthesia Program Director strength is slightly diminished on the left secondary to pain. Sensation was slightly limited to light touch in the left hand in all dermatomes. Sensorium / Orientation: alert Psych mental status grossly normal MDM MDM MDM Narrative Medical decision making narrative: Patient was advised that a venous duplex of her right calf and ultrasound of her left radial artery was unable to be performed at this time due to the holiday weekend. Her wrist pain is not due to an acute arterial occlusion. CBC and comprehensive metabolic profile were obtained and were within normal limits. PT with INR and PTT were obtained and were normal. Patient was given a dose of Lovenox here. Patient was instructed to return on Sunday for venous duplex of her right lower extremity. Patient understands and is agreeable with the plan. All questions were answered. Lab Data Attestation: I reviewed the patient's lab results. Labs: Laboratory Results - last 24 hr 05/07/21 05/07/21 05/07/21 18:00 18:00 18:00 WBC 10.6 RBC 4.19 L Hgb 11.3 L Hct 35.8 L MCV 85.4 MCH 27.0 MCHC 31.6 L RDW Std Deviation 40.9 RDW Coeff of Brittani 13.2 Plt Count 333 MPV 11.0 Immature Gran % (Auto) 0.300 Neut % (Auto) 62.1 Lymph % (Auto) 30.3 Emanuel % (Auto) 5.0 Eos % (Auto) 1.9 Baso % (Auto) 0.4 Absolute Neuts (auto) 6.6 Absolute Lymphs (auto) 3.22 Nucleated RBC % 0 PT 13.0 INR 1.0 APTT 30.6 Sodium 138 Potassium 4.7 Chloride 109 H Carbon Dioxide 23.0 Anion Gap 6 BUN 17 Creatinine 0.81 Estim Creat Clear Calc 122.80 Est GFR (MDRD) Af Amer 114 Est GFR (MDRD) Non-Af 94 BUN/Creatinine Ratio 21.0 H Glucose 84 Calcium 8.9 Total Bilirubin 0.80 AST 36 ALT 29 Alkaline Phosphatase 93 Total Protein 7.1 Albumin 3.5 Globulin 3.6 Albumin/Globulin Ratio 1.0 Discharge Plan Triage Chief Complaint: Other, Pain/Inj ED Provider: Rustam Ivey Dx/Rx/DC Orders Clinical Impression: Traumatic hematoma of left wrist, Pain of right calf Instructions: ED Soft Tissue Contusion, ED Muscle Strain, Extremity Prescriptions: No Action fluoxetine 20 mg capsule 20 mg PO DAILY Qty: 30 RF: 1 norethindrone ac-eth estradiol 0.5-2.5 mg-mcg tablet 2 tab PO DAILY RF: 0 naproxen 500 mg tablet 500 mg PO BID PRN (Reason: pain) Qty: 60 RF: 1 propranolol 80 mg capsule,extended release 24 hr 80 mg PO DAILY Qty: 90 RF: 1 pantoprazole 40 mg tablet,delayed release (DR/EC) 40 mg PO DAILY Qty: 90 RF: 1 cyclobenzaprine 10 mg tablet 5 - 10 mg PO HS PRN (Reason: muscle spasm) Qty: 30 RF: 0 ibuprofen 600 MG tablet 600 mg PO TID PRN (Reason: pain) Qty: 30 RF: 0 levothyroxine 125 mcg tablet 125 mcg PO DAILY Qty: 90 RF: 3 Other Ambulatory Orders: Venous Duplex US, Unilateral (Routine) Facility: [facility] - Location: [facility] Ordered By: Dr. Rustam Ivey Primary Care Provider: Raji Edwards Referrals: Raji Edwards MD [Primary Care Provider] - 3-5 Days Disposition Disposition: Home, Self Care
[2021-05-07 18:10] LABS: Absolute Lymphocyte Count 3.22 X10^3/uL (0.83-4.51); Absolute Neutrophil Count 6.6 X10^3/uL (2.0-7.7); Basophil# 0.04 X10^3/uL; Basophil% 0.4 % (0-1); Eosinophils% 1.9 % (0-5); Hematocrit 35.8 % (37-47); Hemoglobin 11.3 g/dL (12.0-15.0); Lymphocyte # 3.22 X10^3/ul (0.83-4.51); Lymphocyte % 30.3 % (19-41); Mean Corp Hgb Conc 31.6 g/dL (32-36); Mean Corpuscular Volume 85.4 fL (81-99); Monocyte# 0.53 X10^3/uL; NRBC Flagged by Analyzer 0 % (0-5); Neutrophil # 6.59 X10^3/uL (2.7-7.7); Neutrophil % 62.1 % (47-70); Platelet Count 333 K/mm3 (150-450); RBC Distribution Width CV 13.2 % (11.6-14.6); RBC Distribution Width SD 40.9 fl (35.1-43.9); Red Blood Count 4.19 M/mm3 (4.2-5.4); White Blood Count 10.6 K/mm3 (4.4-11.0)
[2021-05-07 18:21] LABS: Partial Thromboplast Time 30.6 Seconds (24.1-36.2)
[2021-05-07 18:42] LABS: AST(SGOT) 36 U/L (15-37); Alanine Aminotransfer ALT/SGPT 29 U/L (13-56); Albumin, Serum 3.5 g/dL (3.2-5.0); Alkaline Phosphatase 93 U/L (45-117); Anion Gap 6 (5-15); BUN 17 mg/dL (7-18); Calcium,Total 8.9 mg/dL (8.5-10.1); Chloride 109 mmol/L (98-107); Creatinine, Serum 0.81 mg/dL (0.55-1.02); EST Glomerular Filtration Rate 94 mL/min (>60); Est Glom Filt Rate - Afr Amer 114 mL/min (>60); Globulin 3.6 g/dL (2.2-4.2); Glucose 84 mg/dL (74-106); Potassium 4.7 mmol/L (3.5-5.1); Protein, Total 7.1 g/dL (6.4-8.2); Sodium Level 138 mmol/L (136-145)
[2021-05-07] MEDS: Enoxaparin 150 MG/ML Syringe SC (19:06)
== END 2021-05-07 19:10 | disposition home or self-care (01) ==
PROVIDERS: Emergency Provider Emergency Medicine; PCP Internal Medicine
DX: S60.212A Contusion of left wrist, initial encounter (principal); M79.661 Pain in right lower leg; K21.9 Gastro-esophageal reflux disease without esophagitis; X58.XXXA Exposure to other specified factors, initial encounter
CPT/HCPCS: 80053; 85025; 85610; 85730; 96374; 99284; A4216

== ENCOUNTER → 2021-05-08 10:17 | Outpatient (CLI) | payer MEDICAID, SELFPAY ==
[2021-05-07 17:26] VITALS: BMI 52.0
--- NOTE | 2021-05-08 10:23 | VDLE_ITS ---
Reason For Study: pain RIGHT GSV is normal. CFV is compressible, spontaneous, phasic, competent and demonstrates normal augmentation. FV is compressible, spontaneous, phasic, competent and demonstrates normal augmentation. POP V is compressible, spontaneous, phasic, competent and demonstrates normal augmentation. T/P Trunk is compressible. PTV is compressible. RT PerV is compressible. Procedure This is a venous duplex using B-mode, color flow and spectral Doppler. Exam performed in department. The exam was abbreviated due to the COVID 19 protocol. The exam was diagnostic. VL/Venous Duplex US, Unilateral Interpretation Summary Deep veins of the right lower extremity are patent and compressible segmentally . There is no evidence of right lower extremity deep vein thrombosis. Valvular competence theron ears intact within the proximal deep venous system on the right . The right great saphenous vein a ppears patent and compressible segmentally. Ordering Physician: Rustam Ivey Performed By: Madi Cueto RVT
== END ==
PROVIDERS: PCP Internal Medicine; Visit Provider Emergency Medicine
DX: M79.661 Pain in right lower leg (principal)
CPT/HCPCS: 93971

== ENCOUNTER → 2021-06-07 | Outpatient (CLI) | payer MEDICAID, SELFPAY ==
[2021-06-07 15:13] VITALS: BMI 52.0
[2021-06-07 15:32] LABS: Mucous, Urine 0 SEEN /hpf (<or=2+); Red Blood Cells-Urine 0 SEEN /hpf (0-5)
[2021-06-07 17:11] LABS: Color, Urine Yellow (Yellow); Glucose, Dipstick Normal (Normal); Ketone-Dipstick Negative (Negative); Leukocyte Esterase-Dipstick 25 /ul (Negative); Nitrite-Dipstick Negative (Negative); Occult Blood-Urine 25 /ul (Negative); Protein-Dipstick 15 mg/dl (Negative); Urine Bilirubin Dipstick Negative (Negative); Urine Clarity Clear (Clear); Urine Urobilinogen Normal (Normal)
[2021-06-07 17:27] LABS: Bacteria 1+ /hpf (None Seen); Squamous Epithelial Cells - UA 0-5 SEEN /hpf (5-10); White Blood Cells 5-10 SEEN /hpf (0-5)
== END | disposition home or self-care (01) ==
LOC: LABSPEC 15:31
PROVIDERS: PCP Internal Medicine; Referring Provider Nurse Practitioner Family; Visit Provider Nurse Practitioner Family
DX: R35.0 Frequency of micturition (principal)
CPT/HCPCS: 81001; 87086; 87088

== ENCOUNTER → 2021-06-16 | Outpatient (CLI) | payer MEDICAID, SELFPAY ==
[2021-06-07 15:13] VITALS: BMI 52.0
[2021-06-16 15:15] LABS: Color, Urine Yellow (Yellow); Glucose, Dipstick Normal (Normal); Ketone-Dipstick 5 mg/dl (Negative); Leukocyte Esterase-Dipstick 100 /ul (Negative); Nitrite-Dipstick Negative (Negative); Occult Blood-Urine 10 /ul (Negative); Protein-Dipstick 30 mg/dl (Negative); Specific Gravity, Urine 1.025 (1.002-1.030); Urine Clarity Sl. Cloudy (Clear); Urine Urobilinogen 1 mg/dl (Normal)
[2021-06-16 15:16] LABS: Urine Bilirubin Dipstick 3 mg/dL (Negative)
[2021-06-16 15:24] LABS: Amorphous Sediment 1+ URATE; Bacteria 1+ /hpf (None Seen); Mucous, Urine 1+ /hpf (<or=2+); Red Blood Cells-Urine 0-5 SEEN /hpf (0-5); Squamous Epithelial Cells - UA 0-5 SEEN /hpf (5-10); White Blood Cells 5-10 SEEN /hpf (0-5)
== END | disposition home or self-care (01) ==
LOC: LABSPEC 14:13
PROVIDERS: PCP Internal Medicine; Referring Provider Nurse Practitioner Family; Visit Provider Nurse Practitioner Family
DX: R30.0 Dysuria (principal)
CPT/HCPCS: 81001; 87086; 87088

== ENCOUNTER → 2021-06-22 14:35 | Outpatient (CLI) | payer MEDICAID, SELFPAY ==
[2021-06-22 17:24] LABS: T4 Free Direct 1.47 ng/dL (0.76-1.46)
== END ==
PROVIDERS: PCP Internal Medicine; Visit Provider Nurse Practitioner Family
DX: E03.8 Other specified hypothyroidism (principal); E06.3 Autoimmune thyroiditis
CPT/HCPCS: 36415; 84439; 84443

== ENCOUNTER → 2021-08-15 07:32 | Outpatient (CLI) | payer MEDICAID, SELFPAY ==
--- NOTE | 2021-08-15 07:34 | US_ITS ---
HISTORY: epigastric and RUQ pain. TECHNIQUE: Alexandra scale and color Doppler imaging was performed of the abdomen. # of images incl. paperwork: 163. COMPARISON: None. FINDINGS: LIVER: 16.9 cm in length. Echogenic without focal lesion. No intrahepatic biliary ductal dilation. CBD: 3 mm in diameter, nondilated. GALLBLADDER: No gallstones or sludge. 3-4 millimeter wall thickness. No pericholecystic fluid. Negative sonographic Ignacio's sign reported. PANCREAS: Not well-visualized due to overlying bowel gas. SPLEEN: 12.9 cm in length. Homogeneous echotexture. 3 cm nodule inferior to the spleen. RIGHT KIDNEY: 12.7 cm in length. No hydronephrosis or gross renal mass. Possible duplex collecting system. LEFT KIDNEY: 13.2 cm in length. No hydronephrosis or gross renal mass. Possible duplex collecting system. IVC: Visualized. AORTA/ILIACS: Patent and nondilated. ASCITES: None reported. US/Abdomen Complete IMPRESSION: Hepatic steatosis. Borderline gallbladder wall thickening without sonographic evidence of cholelithiasis. 3 cm nodule below the spleen, likely splenule. at 1638 Reported and signed by: Sisi Bautista MD Electronically Signed: Sisi Bautista MD at 16:37 EDT Tel , Service support ,
--- NOTE | 2021-08-15 07:34 | RAD_ITS ---
STUDY: X-RAY - CERVICAL SPINE REASON FOR EXAM: Female, 21 years old. chronic neck pain TECHNIQUE: 5 view(s) of the cervical spine were obtained. COMPARISON: None FINDINGS: No acute fracture, dislocation or osseous destruction. Cervical straightening. No significant scoliosis. No spondylolisthesis. Normal neural foramina. No significant joint space narrowing. No significant productive changes. No significant soft tissue swelling. RAD/Cerv Spine 4 or 5 Views IMPRESSION: Cervical spine intact Cervical straightening Electronically Signed: Rustam Juárez DO at 9:29 EDT Tel , Service support ,
== END ==
PROVIDERS: PCP Internal Medicine; Referring Provider Nurse Practitioner Family; Visit Provider Nurse Practitioner Family
DX: K76.0 Fatty (change of) liver, not elsewhere classified (principal); R10.11 Right upper quadrant pain; R10.13 Epigastric pain; G89.29 Other chronic pain; M54.2 Cervicalgia
CPT/HCPCS: 72050; 76700

== ENCOUNTER → 2021-08-29 09:53 | Outpatient (CLI) | payer MEDICAID, SELFPAY ==
--- NOTE | 2021-08-29 09:54 | NM_ITS ---
CLINICAL: 21-year-old female with history of abdominal pain. RADIONUCLIDE HEPATOBILIARY SCINTIGRAPHY COMPARISON: Abdominal ultrasound report 08/15/2021 FINDINGS: Following the intravenous administration of 5.7 mCi of 99m Tc Mebrofenin, hepatobiliary images reveal: 1. Relatively prompt and homogeneous radiopharmaceutical concentration is noted by a normal sized liver. No parenchymal defects are identified. 2. Gallbladder activity is identified at 10-15 minutes post radiopharmaceutical administration. 3. Small intestinal tract is not visualized during 60 minutes of pre-CCK sequential imaging. Small bowel activity is identified following the administration of cholecystokinin. 4. Washout of the radiopharmaceutical by the hepatic parenchyma appears qualitatively normal. Cholecystokinin (0.02 ug/kg) was administered intravenously over a 30-minute period. The post CCK gallbladder ejection fraction calculated at 20 minutes following Cholecystokinin administration was noted to be 45.0 % (normal greater than 35%). During 30 minutes of post CCK imaging, there is no scintigraphic evidence of reflux of the radiotracer into the common hepatic duct or refilling of the gallbladder. OR/Hepatobilliary Img w/Pharm Int IMPRESSION: 1. NORMAL 99m Tc Mebrofenin hepatobiliary imaging examination with Cholecystokinin. A. A gallbladder ejection fraction calculated to be greater than 35% following the administration of Cholecystokinin makes the probability of functional hepatobiliary disease (gallbladder and/or sphincter of Oddi dyskinesia) and/or organic hepatobiliary disease (chronic acalculous cholecystitis and/or cystic duct syndrome) to be low. (Zuleyka Bailey et al, Journal of Nuclear Medicine 32:1695, 1991). Electronically Signed: Carlyle Roe DO at 21:25 EDT Tel , Service support ,
== END ==
PROVIDERS: PCP Internal Medicine; Referring Provider Internal Medicine Gastroenterology; Visit Provider Internal Medicine Gastroenterology
DX: R10.11 Right upper quadrant pain (principal); G89.29 Other chronic pain
CPT/HCPCS: 78227; A9537; J2805

== ENCOUNTER 2021-09-07 07:51 | Day surgery (SDC) | payer MEDICAID, SELFPAY ==
[2021-09-07] MEDS: Lactated Ringers 1,000 ML 15 ML IV (08:05)
[2021-09-07 08:17] LABS: Internal QC Validated? YES +Cl - CLEAR BKGD; Pregnancy, Urine Negative Negative
[2021-09-07 08:23] VITALS: BP 149/100; PULSE 112; RESP 16; TEMP 36.8; O2SAT 96; BMI 49.8
--- NOTE | 2021-09-07 08:45 | COLBX_PTH ---
PATIENT: ADELA BURTON LOC: EN U#:[id number] AGE/SX: 21/F ROOM: RE09/07/[address]: Dr. Eduar Lopez DO : 2000 BED: DIS: 09/07/2021 SPEC #: [id number] RECD: 09/07/21 12:06 STATUS: WAQAS TACO #: [id number] REENA: 09/07/21 08:[address]: Eduar Lopez DEPT: SURGICAL PATHOLOGY RECD BY: Araceli Peguero ENTERED: 09/07/21 13:41 SP TYPE: COLON BX OTHR DR: Dr. Raji Edwards MD Tissues: A - Duodenum, NOS B - Ileum, NOS C - COLON BIOPSY D - Rectum, NOS Procedures: Surgery Specimen Level IV HEADER OPERATION: Colonoscopy, EGD ([facility] [place]) PRE-OP DIAGNOSIS: Chronic RUQ pain, rectal bleeding, abdomen pain TISSUE SUBMITTED: A ? Duodenum biopsy, B ? Terminal ileum biopsy, C ? Random colon biopsies, D ? Rectum biopsy MICROSCOPIC DIAGNOSIS A. Duodenum, biopsy: Focal lymphangiectasia. No evidence of duodenitis. B. Terminal ileum, biopsy: No pathologic change. C. Colon, random biopsy: No pathologic change. D. Rectum, biopsy: No pathologic change. AM:lázaro 09/08/2021 MICROSCOPIC DESCRIPTION Slides are reviewed. GROSS DESCRIPTION A - Received in fixative is one container labeled with the patient's name and designated duodenum biopsy. The specimen consists of multiple irregular fragments of light fuller soft tissue that in aggregate measure 2 x 0.3 x 0.1 cm. The specimen is totally submitted in one cassette. B - Received in fixative is one container labeled with the patient's name and designated terminal ileum biopsy. The specimen consists of multiple irregular fragments of light fuller soft tissue that in aggregate measure 1 x 0.5 x 0.1 cm. The specimen is totally submitted in one cassette. C - Received in fixative is one container labeled with the patient's name and designated random colonic biopsy. The specimen consists of multiple irregular fragments of light fuller soft tissue that in aggregate measure 2 x 0.6 x 0.1 cm. The specimen is totally submitted in one cassette. D - Received in fixative is one container labeled with the patient's name and designated rectum biopsy. The specimen consists of multiple irregular fragments of light fuller soft tissue that in aggregate measure 0.5 x 0.5 x 0.1 cm. The specimen is totally submitted in one cassette. / SJ:lázaro 09/07/21 TC:5 CPT: 50357 x4
--- NOTE | 2021-09-07 09:12 | HP.PCM_ITS ---
History and Physical Date of Admission: 09/07/21 Medications fluoxetine 20 mg capsule 20 mg PO DAILY #30 cap 05/06/20 [Rx Confirmed 08/22/21] norethindrone acetate 0.5 mg-ethinyl estradiol 2.5 mcg tablet 2 tab PO DAILY tab 08/30/20 [History Confirmed 08/22/21] cyclobenzaprine 10 mg tablet 5 - 10 mg PO HS PRN #30 tab 04/05/21 [Rx Confirmed 08/22/21] levothyroxine 125 mcg tablet 125 mcg PO DAILY #90 tab 05/05/21 [Rx Confirmed 08/22/21] propranolol 80 mg capsule,24 hr,extended release 80 mg PO DAILY #90 cap 06/27/21 [Rx Confirmed 08/22/21] fluticasone propionate 50 mcg/actuation nasal spray,suspension 1 spray INTRANASAL BID PRN #16 g 07/25/21 [Rx Confirmed 08/22/21] levocetirizine 5 mg tablet 5 mg PO DAILY PRN #30 tab 07/25/21 [Rx Confirmed 08/22/21] ondansetron HCl 4 mg tablet 4 mg PO Q8H PRN #15 tab 07/25/21 [Rx Confirmed 08/22/21] polyethylene glycol 3350 17 gram/dose oral powder 17 g PO DAILY PRN #850 g 08/04/21 [Rx Confirmed 08/22/21] pantoprazole 40 mg tablet,delayed release 40 mg PO DAILY #90 tablet 08/12/21 [Rx Confirmed 08/22/21] bisacodyl 5 mg tablet,delayed release 20 mg PO ONCE #4 tab 08/22/21 [Rx Confirmed 08/22/21] polyethylene glycol 3350 17 gram/dose oral powder 17 g PO Q10-15M #238 g 08/22/21 [Rx Confirmed 08/22/21] [facility] Medical History (Updated 08/22/21 @ 12:[address] Witt Friend, DO) Abdominal pain Anemia Anxiety Back problem BILATERAL RENAL DUPLICATION Chronic neck pain Chronic neck pain Chronic RUQ pain Dermatographism Endometriosis determined by laparoscopy Fibromyalgia Frequent headaches GERD (gastroesophageal reflux disease) Irritable bowel syndrome with constipation Left wrist pain Muscle spasm Rectal bleeding Surgical History History of appendectomy History of laparoscopy History of tonsillectomy Family History Other Anemia Angina pectoris Anxiety Arthritis Autoimmune disorder Bleeding disorder Depression Heart disease High cholesterol Hypertension Myocardial infarction Uterine cancer Social History Smoking Status: Never smoker alcohol intake: never substance use type: does not use what type of physical activity do you participate in: none HPI HPI Details: DAELA BURTON, is a 21 F who presents to the office today for the evaluation of abdominal pain. She has a history of IBS with alternating constipation and diarrhea. She also has a past medical history of hypothyroidism and has been struggling with endometriosis for several years. She got a laparoscopic evaluation here at [facility] and she was determined to have multiple adhesions with multiple endometrial implants. She was referred to [facility] for removal of adhesions and endometrial tissue. She does not have the op note. However, since the surgery in April of this year she has had abdominal pain thro ugh all four quadrants with increase in pain after eating. She is also having alternating constipation and diarrhea with lots of mucous, nausea occurring a couple times a weeks. The endometriosis surgery performed 05/04/2021 with appendectomy. She had a MRI that displayed possibility of endometriosis on bowel which resolved prior to surgery. Colorectal surgeon consulted with noted kink in bowel after sigmoidoscopy. He also said that she had poor pelvic floor function noted after her sigmoidoscopy. He also told her to get a book regarding pelvic floor dysfunction. She was started on Miralax and zofran were ordered previously and were effective for her symptoms. An abdominal US performed with results indicating hepatic steatosis, gallbladder wall thickening, 3cm nodule below spleen likely splenule, pancreas not well visualized due to overlying bowel gas. She has concerns about possible bleeding hemorrhoids d/t occasional blood on toilet paper, colorectal surgeon told her she did not have hemorrhoids. She also has a history of Lorena thyroiditis and dermatographism. ROS Const Constitutional: Positive for fatigue and headache(s) Eyes Eyes: Positive for irritation ENT ENT: Positive for ear or mastoid pain, nasal congestion and headache(s) Gastro GI: Positive for abdominal pain, bloating, change in bowel habits, constipation, diarrhea, heartburn and nausea/dyspepsia Genitourinary-Female: Positive for urinary frequency and urinary urgency Musc Musculoskeletal: Positive for joint pain, back pain, joint swelling, muscle cramps, muscle weakness and stiffness Skin Skin: Positive for dry skin, itchy eyes and rash Neuro Neurology: Positive for headache(s) Psych Psychiatric: Positive for anxiety Endo Endocrine: Positive for fatigue Aller/Imm Allergy/Immunologic: Positive for itchy eyes Exam Const General: cooperative and comfortable Nutritional Appearance: average body habitus and well nourished HENMT Head: normal to inspection Ears: hearing grossly normal bilaterally Nose: external nose normal Face and sinus: normal facial exam Mouth: oral mucosae normal Throat: posterior oropharynx normal Eyes General: appearance normal, both eyes and all related structures Neck Neck: normal visual inspection Chest Chest palpation & inspection: normal inspection of the chest and normal palpation of entire chest wall Resp Effort & Inspection: normal respiratory effort Auscultation: Bilateral: Clear to Auscultation Cardio Palpation: normal PMI Rate: regular rate Rhythm: regular rhythm GI Inspection: normal to inspection Auscultation: normal bowel sounds Percussion: normal to percussion Palpation: no hepatosplenomegaly Skin General: no rashes or lesions noted Neuro General: patient alert Extrem General: normal to inspection Psych Affect: normal affect Quality Reporting Tobacco Screening ([facility] 138) Smoking Status: Never smoker Assessment and Plan Assessment and Plan (1) Chronic RUQ pain: Status: Chronic Orders: Orders: Hepatobilliary Img w/Pharm Int Today Plan - Dr. Witt Friend, DO: I will get an HIDA scan of the right upper quadrant. This will help us in 2 ways. If there is delayed emptying into the small bowel then that could be consistent with sphincter of Oddi syndrome. If she has a positive Ignacio sign with a HIDA scan then that could be possibly secondary to biliary colic. Also if her ejection fraction is low that would indicate biliary dysfunction. (2) Rectal bleeding: Status: Acute Plan - Dr. Witt Friend, DO: She will get a colonoscopy so we can see if her symptoms are secondary to a kink she has in her bowel versus a stercoral ulcer syndrome versus endometriosis of the colon and less likely inflammatory bowel disease. (3) Abdominal pain: Status: Acute Plan - Dr. Witt Friend, DO: Pain is possibly secondary to gallbladder dysfunction. We will also evaluate her upper GI tract for peptic ulcer disease, duodenitis, H. pylori infection, gastric outlet obstruction or signs of gastroparesis Plan Details Other Medications: New: bisacodyl Please take 30 minutes prior to starting the prep for colonoscopy 20 mg (4 x 5 mg) PO ONCE 4 tabs 0RF polyethylene glycol 3350 (Miralax) 17 grams PO Q10-15M 238 grams 0RF This is an updated H&P from the patient was seen in office.
--- NOTE | 2021-09-07 09:26 | OP.EGD_ITS ---
Patient Name: Yuliana Salgado Procedure Date: 09/07/2021 9:04 AM Date of : 2000 Age: 21 Procedure: Upper GI endoscopy Indications: Epigastric abdominal pain Providers: Eduar Lopez DO Medicines: See the Anesthesia note for documentation of the administered medications Patient Profile: This is a 21 year old female. Refer to note in patient chart for documentation of history and physical. Patient has symptoms of acute abdominal cramping and acute abdominal distention. The symptoms first began July. She is status post flexible sigmoidoscopy within the past three months. Complications: No immediate complications. Procedure: Pre-Anesthesia Assessment: - Prior to the procedure, a History and Physical was performed, and patient medications and allergies were reviewed. The patient is competent. The risks and benefits of the procedure and the sedation options and risks were discussed with the patient. All questions were answered and informed consent was obtained. Patient identification and proposed procedure were verified by the physician in the pre-procedure area. Mental Status Examination: alert and oriented. Airway Examination: normal oropharyngeal airway and neck mobility. Respiratory Examination: clear to auscultation. CV Examination: normal. Prophylactic Antibiotics: The patient does not require prophylactic antibiotics. Prior Anticoagulants: The patient has taken no previous anticoagulant or antiplatelet agents. ASA Grade Assessment: II - A patient with mild systemic disease. After reviewing the risks and benefits, the patient was deemed in satisfactory condition to undergo the procedure. The anesthesia plan was to use moderate sedation / analgesia (conscious sedation). Immediately prior to administration of medications, the patient was re-assessed for adequacy to receive sedatives. The heart rate, respiratory rate, oxygen saturations, blood pressure, adequacy of pulmonary ventilation, and response to care were monitored throughout the procedure. The physical status of the patient was re-assessed after the procedure. After obtaining informed consent, the endoscope was passed under direct vision. Throughout the procedure, the patient's blood pressure, pulse, and oxygen saturations were monitored continuously. The Endoscope was introduced through the mouth, and advanced to the second part of duodenum. The upper GI endoscopy was accomplished without difficulty. The patient tolerated the procedure well. Moderate Sedation: Moderate (conscious) sedation was administered by the endoscopy nurse and supervised by the endoscopist. The patient's oxygen saturation, heart rate, blood pressure and response to care were monitored. Total physician intraservice time was 15 minutes. Scope In: 9:19:33 AM Scope Out: 9:22:59 AM Total Procedure Duration Time 0 hours 3 minutes 26 seconds Findings: The examined esophagus was normal. The entire examined stomach was normal. Patchy mildly erythematous mucosa without active bleeding and with no stigmata of bleeding was found in the first portion of the duodenum. This was biopsied with a cold jumbo forceps for histology. Verification of patient identification for the specimen was done. Estimated blood loss was minimal. Impression: - Normal esophagus. - Normal stomach. - Erythematous duodenopathy. Biopsied. Recommendation: - Discharge patient to home. - Resume previous diet. - Continue present medications. - Await pathology results. - Repeat upper endoscopy in 1 year for surveillance based on pathology results. - Return to GI office in 2 weeks. Procedure Code(s): --- Professional --- 11891, Esophagogastroduodenoscopy, flexible, transoral; with biopsy, single or multiple G0500, Moderate sedation services provided by the same physician or other qualified health childcare aide performing a gastrointestinal endoscopic service that sedation supports, requiring the presence of an independent trained observer to assist in the monitoring of the patient's level of consciousness and physiological status; initial 15 minutes of intra-service time; patient age 5 years or older (additional time may be reported with 09549, as appropriate) Diagnosis Code(s): --- Professional --- K31.89, Other diseases of stomach and duodenum CPT copyright 2017 [employer]. All rights reserved. The codes documented in this report are preliminary and upon component design engineer review may be revised to meet current compliance requirements. Eduar Lopez DO 09/07/2021 9:26:09 AM This report has been signed electronically. Number of Addenda: 1 Note Initiated On: 09/07/2021 9:04 AM Addendum Number: 1 Addendum Date: 07/07/2022 6:09:22 AM MAC was used instead of moderate sedation for this patient. Eduar Lopez DO 07/07/2022 6:09:29 AM This report has been signed electronically.
--- NOTE | 2021-09-07 09:27 | OP.CCLET_ITS ---
07/07/2022 Raji Edwards MD [address] [place] [address] [place] [address] Re : Upper GI endoscopy procedure for Yuliana Salgado Dear Dr. Edwards This procedure was performed on Tuesday, September 07, 2021. My impressions and recommendations are as follows: Impressions : - Normal esophagus. - Normal stomach. - Erythematous duodenopathy. Biopsied. Recommendations : - Discharge patient to home. - Resume previous diet. - Continue present medications. - Await pathology results. - Repeat upper endoscopy in 1 year for surveillance based on pathology results. - Return to GI office in 2 weeks. My findings are described in the full procedure note, which is enclosed. If I can be of further assistance, please feel free to contact me at . Sincerely, Eduar Lopez, 09/07/2021 9:26:09 AM This report has been signed electronically.
[2021-09-07 09:45] VITALS: BP 112/98; BP 149/90; PULSE 98; RESP 20; TEMP 35.9; O2SAT 100
--- NOTE | 2021-09-07 09:47 | OP.COLON_ITS ---
Patient Name: Yuliana Salgado Procedure Date: 09/07/2021 9:24 AM Date of : 2000 Age: 21 Procedure: Colonoscopy Indications: Abdominal pain in the left lower quadrant, Chronic diarrhea Providers: Eduar Lopez DO Medicines: See the Anesthesia note for documentation of the administered medications Patient Profile: This is a 21 year old female. Refer to note in patient chart for documentation of history and physical. Patient has symptoms of acute abdominal cramping and acute abdominal distention. The symptoms first began July. She is status post flexible sigmoidoscopy within the past three months. She is status post flexible sigmoidoscopy. Last Colonoscopy: within the past 3 months. Complications: No immediate complications. Procedure: Pre-Anesthesia Assessment: - Prior to the procedure, a History and Physical was performed, and patient medications and allergies were reviewed. The patient is competent. The risks and benefits of the procedure and the sedation options and risks were discussed with the patient. All questions were answered and informed consent was obtained. Patient identification and proposed procedure were verified by the physician in the pre-procedure area. Mental Status Examination: alert and oriented. Airway Examination: normal oropharyngeal airway and neck mobility. Respiratory Examination: clear to auscultation. CV Examination: normal. Prophylactic Antibiotics: The patient does not require prophylactic antibiotics. Prior Anticoagulants: The patient has taken no previous anticoagulant or antiplatelet agents. ASA Grade Assessment: II - A patient with mild systemic disease. After reviewing the risks and benefits, the patient was deemed in satisfactory condition to undergo the procedure. The anesthesia plan was to use moderate sedation / analgesia (conscious sedation). Immediately prior to administration of medications, the patient was re-assessed for adequacy to receive sedatives. The heart rate, respiratory rate, oxygen saturations, blood pressure, adequacy of pulmonary ventilation, and response to care were monitored throughout the procedure. The physical status of the patient was re-assessed after the procedure. After I obtained informed consent, the scope was passed under direct vision. Throughout the procedure, the patient's blood pressure, pulse, and oxygen saturations were monitored continuously. The Colonoscope was introduced through the anus and advanced to the terminal ileum. The colonoscopy was performed without difficulty. The patient tolerated the procedure well. The quality of the bowel preparation was good. Moderate Sedation: Moderate (conscious) sedation was administered by the endoscopy nurse and supervised by the endoscopist. The patient's oxygen saturation, heart rate, blood pressure and response to care were monitored. Total physician intraservice time was 15 minutes. Scope In: 9:28:04 AM Scope Withdrawal Time 0 hours 8 minutes 54 seconds Scope Out: 9:40:38 AM Total Procedure Duration Time 0 hours 12 minutes 34 seconds Findings: The perianal and digital rectal examinations were normal. A localized area of mildly congested and djazwrhf-wvcroxh-ehokbymvr mucosa was found in the rectum. Biopsies were taken with a cold forceps for histology. Verification of patient identification for the specimen was done. Estimated blood loss was minimal. The entire examined colon appeared normal on direct and retroflexion views. Impression: - Congested and csomtiyi-vmpxuhj-zdzcaypoe mucosa in the rectum. Biopsied. - The entire examined colon is normal on direct and retroflexion views. - The examination was suspicious for ileitis. Recommendation: - Discharge patient to home. - Resume previous diet. - Continue present medications. - Await pathology results. - Repeat colonoscopy in 2 years for surveillance based on pathology results. - Return to GI office in 2 weeks. Procedure Code(s): --- Professional --- 46327, Colonoscopy, flexible; with biopsy, single or multiple G0500, Moderate sedation services provided by the same physician or other qualified health home health care provider performing a gastrointestinal endoscopic service that sedation supports, requiring the presence of an independent trained observer to assist in the monitoring of the patient's level of consciousness and physiological status; initial 15 minutes of intra-service time; patient age 5 years or older (additional time may be reported with 70502, as appropriate) Diagnosis Code(s): --- Professional --- K62.89, Other specified diseases of anus and rectum R10.32, Left lower quadrant pain K52.9, Noninfective gastroenteritis and colitis, unspecified CPT copyright 2017 [employer]. All rights reserved. The codes documented in this report are preliminary and upon human resources benefits manager review may be revised to meet current compliance requirements. Eduar Lopez DO 09/07/2021 9:46:59 AM This report has been signed electronically. Number of Addenda: 1 Note Initiated On: 09/07/2021 9:24 AM Addendum Number: 1 Addendum Date: 07/07/2022 6:09:39 AM MAC was used instead of moderate sedation for this patient. Eduar Lopez DO 07/07/2022 6:09:43 AM This report has been signed electronically.
--- NOTE | 2021-09-07 09:48 | OP.CCLET_ITS ---
07/07/2022 Raji Edwards MD [address] [place] [address] [place] [address] Re : Colonoscopy procedure for Yuliana Salgado Dear Dr. Edwards This procedure was performed on Tuesday, September 07, 2021. My impressions and recommendations are as follows: Impressions : - Congested and btllrrlg-nxvmhxu-sksrqqizc mucosa in the rectum. Biopsied. - The entire examined colon is normal on direct and retroflexion views. - The examination was suspicious for ileitis. Recommendations : - Discharge patient to home. - Resume previous diet. - Continue present medications. - Await pathology results. - Repeat colonoscopy in 2 years for surveillance based on pathology results. - Return to GI office in 2 weeks. My findings are described in the full procedure note, which is enclosed. If I can be of further assistance, please feel free to contact me at . Sincerely, Eduar Lopez, 09/07/2021 9:46:59 AM This report has been signed electronically.
[2021-09-07 09:50] VITALS: BP 140/107; BP 149/90; PULSE 90; RESP 20; O2SAT 100
[2021-09-07 09:55] VITALS: BP 145/92; BP 149/90; PULSE 92; RESP 16; O2SAT 100
[2021-09-07 10:00] VITALS: BP 147/88; BP 149/90; PULSE 84; RESP 16; TEMP 35.8; O2SAT 100
[2021-09-07 10:24] VITALS: BP 149/90
== END 2021-09-07 10:33 | disposition home or self-care (01) ==
LOC: EN 07:51 → AC 07:52
PROVIDERS: Anesthesiology; PCP Internal Medicine; Referring Provider Internal Medicine; Visit Provider Internal Medicine Gastroenterology
PROC: 0DJD8ZZ Inspection of Lower Intestinal Tract, Via Natural or Artificial Opening Endoscopic (ICD-10-PCS; CPT 45378; principal; 2021-09-07 08:40)
DX: K31.89 Other diseases of stomach and duodenum (principal); K52.9 Noninfective gastroenteritis and colitis, unspecified; K21.9 Gastro-esophageal reflux disease without esophagitis; K76.0 Fatty (change of) liver, not elsewhere classified; K62.5 Hemorrhage of anus and rectum; R10.13 Epigastric pain; R10.32 Left lower quadrant pain; R10.11 Right upper quadrant pain; G89.29 Other chronic pain; I10 Essential (primary) hypertension; E06.3 Autoimmune thyroiditis; M79.7 Fibromyalgia; Z79.3 Long term (current) use of hormonal contraceptives; Z79.899 Other long term (current) drug therapy; Z20.822 Contact with and (suspected) exposure to COVID-19
CPT/HCPCS: 43239; 45380; 81025; 87426; 88305; C9803; J7120; J2405

== ENCOUNTER → 2021-10-05 12:27 | Outpatient (CLI) | payer MEDICAID, SELFPAY ==
--- NOTE | 2021-10-05 12:29 | MRI_ITS ---
EXAM: MR ABDOMEN WITHOUT AND WITH INTRAVENOUS CONTRAST : 2000 CLINICAL INDICATION: RUQ pain TECHNIQUE: Multiplanar and multisequence MR images of the abdomen without and with intravenous contrast. This report was created using [employer] technology. CONTRAST: IV 30ml dotarem COMPARISON: Abdominal ultrasound August 15, 2021 FINDINGS: LOWER THORAX: Unremarkable. No pleural effusion. LIVER: No signal dropout within the liver on the out of phase imaging to suggest steatosis. No space occupying lesions within the liver. GALLBLADDER AND BILE DUCTS: Gall bladder is contracted consistent with a nonfasting state. No gallstones. No wall edema. No intra- or extrahepatic biliary ductal dilation. PANCREAS: Unremarkable. No focal cystic or solid mass. SPLEEN: 20 and 14 mm splenules noted within the left upper quadrant. Normal size spleen ADRENALS: Unremarkable. No nodules. KIDNEYS AND URETERS: Unremarkable. Normal renal size and position. No hydronephrosis. INTRAPERITONEAL SPACE: Unremarkable. No ascites or other fluid collection. No free air. VASCULATURE: Unremarkable. Abdominal aorta is non-dilated. LYMPH NODES: No enlarged lymph nodes. OTHER FINDINGS: Gall bladder is contracted consistent with a nonfasting state. MRI/MRI Abd WITH and W/O Contrast IMPRESSION: Normal MRI of the upper abdomen with and without contrast. Nonfasting appearance of the gallbladder. at 1316 Reported and signed by: Josué Amaro MD Electronically Signed: Josué Amaro MD at 13:14 EST Tel , Service support ,
[2021-10-05 12:56] LABS: CREATININE FINGERSTICK 0.8 mg/dL (0.55-1.02); EGFR FINGERSTICK > 60.0000 mL/min (>60)
== END ==
PROVIDERS: PCP Internal Medicine; Visit Provider Internal Medicine Gastroenterology
DX: R10.11 Right upper quadrant pain (principal); G89.29 Other chronic pain
CPT/HCPCS: 74183; A9575

== ENCOUNTER → 2021-10-21 15:27 | Outpatient (CLI) | payer MEDICAID, SELFPAY ==
[2021-10-21 16:45] LABS: AST(SGOT) 13 U/L (15-37); Alanine Aminotransfer ALT/SGPT 26 U/L (13-56); Albumin, Serum 3.4 g/dL (3.2-5.0); Alkaline Phosphatase 102 U/L (45-117); Bilirubin, Direct 0.14 mg/dL (0.00-0.30); Free T3 2.2 pg/mL (2.18-3.98); Globulin 4.2 g/dL (2.2-4.2); Lipase 85 U/L (73-393); Protein, Total 7.6 g/dL (6.4-8.2); T4 Free Direct 1.23 ng/dL (0.76-1.46)
[2021-10-21 16:46] LABS: Amylase 45 U/L (25-115)
== END ==
PROVIDERS: PCP Internal Medicine; Visit Provider Nurse Practitioner Adult Health
DX: K83.4 Spasm of sphincter of Oddi (principal); E03.8 Other specified hypothyroidism; E06.3 Autoimmune thyroiditis
CPT/HCPCS: 36415; 80076; 82150; 83690; 84439; 84443; 84481

== ENCOUNTER 2021-11-07 15:09 | Outpatient (CLI) | payer MEDICAID, SELFPAY ==
[2021-11-07 15:10] LABS: Mucous, Urine 0 SEEN /hpf (<or=2+); Red Blood Cells-Urine 0 SEEN /hpf (0-5); White Blood Cells 0 SEEN /hpf (0-5)
[2021-11-07 16:42] LABS: Color, Urine Yellow (Yellow); Glucose, Dipstick Normal (Normal); Ketone-Dipstick Negative (Negative); Leukocyte Esterase-Dipstick 25 /ul (Negative); Nitrite-Dipstick Negative (Negative); Occult Blood-Urine Negative /ul (Negative); Protein-Dipstick Negative (Negative); Urine Bilirubin Dipstick Negative (Negative); Urine Clarity Clear (Clear); Urine Urobilinogen Normal (Normal); Urine pH 6.5 (5.0 - 8.0)
[2021-11-07 17:08] LABS: Bacteria RARE /hpf (None Seen); Squamous Epithelial Cells - UA 0-5 SEEN /hpf (5-10)
== END 2021-11-07 23:59 | disposition short-term general hospital (02) ==
LOC: LABSPEC 15:10
PROVIDERS: PCP Internal Medicine; Referring Provider Physician Assistant; Visit Provider Physician Assistant
DX: R30.0 Dysuria (principal)
CPT/HCPCS: 81001; 87086; 87088

== ENCOUNTER 2021-12-10 11:17 | Outpatient (CLI) | payer MEDICAID, SELFPAY ==
[2021-12-10 11:26] LABS: Mucous, Urine 0 SEEN /hpf (<or=2+); Red Blood Cells-Urine 0 SEEN /hpf (0-5); White Blood Cells 0 SEEN /hpf (0-5)
[2021-12-10 11:38] LABS: Color, Urine Straw (Yellow); Glucose, Dipstick Normal (Normal); Ketone-Dipstick Negative (Negative); Leukocyte Esterase-Dipstick 100 /ul (Negative); Nitrite-Dipstick Negative (Negative); Occult Blood-Urine Negative /ul (Negative); Protein-Dipstick Negative (Negative); Urine Bilirubin Dipstick Negative (Negative); Urine Clarity Clear (Clear); Urine Urobilinogen Normal (Normal); Urine pH 6.5 (5.0 - 8.0)
[2021-12-10 11:43] LABS: Squamous Epithelial Cells - UA 0-5 SEEN /hpf (5-10)
[2021-12-10 11:44] LABS: Bacteria RARE /hpf (None Seen)
== END 2021-12-10 23:59 | disposition home or self-care (01) ==
LOC: LAB 11:18
PROVIDERS: PCP Internal Medicine; Referring Provider Physician Assistant; Visit Provider Physician Assistant
DX: R35.0 Frequency of micturition (principal)
CPT/HCPCS: 81001; 87086; 87088

== ENCOUNTER 2022-01-30 13:54 | Outpatient (CLI) | payer MEDICAID, SELFPAY | END 2022-01-30 23:59 | disposition home or self-care (01) | LOC: LABSPEC 13:55 | PROVIDERS: PCP Internal Medicine; Referring Provider Internal Medicine; Visit Provider Internal Medicine | DX: J02.9 Acute pharyngitis, unspecified (principal) | CPT/HCPCS: 87070 ==

== ENCOUNTER → 2022-04-07 | Outpatient (CLI) | payer MEDICAID, SELFPAY ==
[2022-04-07 17:11] LABS: ALB/GLOB Ratio 0.8 RATIO (0.9-2.4); AST(SGOT) 14 U/L (15-37); Alanine Aminotransfer ALT/SGPT 22 U/L (13-56); Albumin, Serum 3.4 g/dL (3.2-5.0); Alkaline Phosphatase 100 U/L (45-117); Anion Gap 5 (5-15); BUN 10 mg/dL (7-18); BUN/Creat Ratio 13.8 RATIO (10-20); Chloride 107 mmol/L (98-107); Creatinine, Serum 0.72 mg/dL (0.55-1.02); EST Glomerular Filtration Rate 106 mL/min (>60); Est Glom Filt Rate - Afr Amer 129 mL/min (>60); Globulin 4.1 g/dL (2.2-4.2); Glucose 91 mg/dL (74-106); Protein, Total 7.5 g/dL (6.4-8.2); Sodium Level 136 mmol/L (136-145); T4 Free Direct 1.16 ng/dL (0.76-1.46); Thyroid Stim Hormone (TSH) 2.12 uIU/mL (0.358-3.74)
[2022-04-07 17:17] LABS: Erythrocyte Sedimentation Rate 46 mm/hr (0-30)
[2022-04-07 17:19] LABS: Absolute Lymphocyte Count 3.36 X10^3/uL (0.83-4.51); Basophil# 0.05 X10^3/uL; Basophil% 0.6 % (0-1); Eosinophil# 0.14 X10^3/uL; Eosinophils% 1.6 % (0-5); Hematocrit 38.4 % (37-47); Hemoglobin 12.3 g/dL (12.0-15.0); Lymphocyte # 3.36 X10^3/ul (0.83-4.51); Lymphocyte % 37.3 % (19-41); Mean Corpuscular Hgb 26.6 pg (27.0-32.0); Mean Corpuscular Volume 82.9 fL (81-99); Mean Platelet Vol. 10.5 fl (6.2-12.0); Monocyte% 4.4 % (0-10); NRBC Flagged by Analyzer 0 % (0-5); Neutrophil # 5.04 X10^3/uL (2.7-7.7); Neutrophil % 55.9 % (47-70); Platelet Count 418 K/mm3 (150-450); RBC Distribution Width CV 13.1 % (11.6-14.6); RBC Distribution Width SD 39.3 fl (35.1-43.9); Red Blood Count 4.63 M/mm3 (4.2-5.4)
[2022-04-10 15:08] LABS: Endomysial Antibody IgA Negative (Negative); Immunoglobulin A 77 mg/dL (87-352)
[2022-04-10 18:24] LABS: t-Transglutaminase IgA <2 U/mL (0-3)
== END | disposition home or self-care (01) ==
LOC: LAB 15:11
PROVIDERS: PCP Internal Medicine; Visit Provider Internal Medicine Gastroenterology
DX: R10.11 Right upper quadrant pain (principal); G89.29 Other chronic pain
CPT/HCPCS: 86140; 36415; 80053; 82784; 83516; 84439; 84443; 85025; 85652; 86141; 86255

== ENCOUNTER → 2022-05-23 | Outpatient (CLI) | payer MEDICAID, SELFPAY ==
[2022-05-23 16:25] LABS: Hematocrit 40.4 % (37-47); Hemoglobin 12.8 g/dL (12.0-15.0); Mean Corp Hgb Conc 31.7 g/dL (32-36); Mean Corpuscular Hgb 25.9 pg (27.0-32.0); Mean Corpuscular Volume 81.8 fL (81-99); Mean Platelet Vol. 10.5 fl (6.2-12.0); Platelet Count 429 K/mm3 (150-450); RBC Distribution Width CV 13.2 % (11.6-14.6); RBC Distribution Width SD 39.2 fl (35.1-43.9); Red Blood Count 4.94 M/mm3 (4.2-5.4); White Blood Count 9.1 K/mm3 (4.4-11.0)
[2022-05-23 16:53] LABS: Progesterone Level 0.42 ng/mL (See Comment); Vitamin B12 390 pg/mL (211-911); Vitamin D,25 Hydroxy 15.4 ng/mL
[2022-05-23 20:14] LABS: AST(SGOT) 16 U/L (15-37); Alanine Aminotransfer ALT/SGPT 27 U/L (13-56); Albumin, Serum 3.5 g/dL (3.2-5.0); Alkaline Phosphatase 97 U/L (45-117); Bilirubin, Direct 0.17 mg/dL (0.00-0.30); Estradiol 52.9 pg/mL; Ferritin 11 ng/mL (8-252); Globulin 3.9 g/dL (2.2-4.2); Iron 57 ug/dL (50-170); Iron Binding Capacity,Total 411 ug/dL (250-450); PERCENT IRON SATURATION 13.9 % (15.0-55.0); Protein, Total 7.4 g/dL (6.4-8.2)
[2022-05-28 10:07] LABS: Testosterone, Free 1.19 ng/dL (0.10-0.85); Testosterone, Total 41 ng/dL (13-71)
[2022-05-28 14:08] LABS: Sex Hormone-binding Globulin 20.4 nmol/L (24.6-122.0)
== END | disposition home or self-care (01) ==
PROVIDERS: PCP Internal Medicine; Visit Provider Obstetrics & Gynecology
DX: N91.2 Amenorrhea, unspecified (principal); L70.9 Acne, unspecified
CPT/HCPCS: 36415; 80076; 82306; 82607; 82670; 82728; 82746; 83540; 83550; 84144; 84270; 84402; 84403; 85027

== ENCOUNTER → 2022-06-09 | Outpatient (CLI) | payer MEDICAID, SELFPAY ==
--- NOTE | 2022-06-09 07:49 | US_ITS ---
INDICATION: hypothyroidism/ thyroid nodule EXAMINATION: Ultrasound US Thyroid (eg thyroid, parathyroid, parotid) TECHNIQUE: Alexandra scale and color doppler imaging was performed of the thyroid gland. COMPARISON: 10/26/2020. FINDINGS: RIGHT THYROID LOBE: The right lobe of the thyroid gland is slightly prominent in size demonstrates homogeneous echogenicity and unremarkable vascularity, The right lobe of the thyroid gland measures 5.4 x 1.6 x 1.3 cm demonstrating slight prominence in comparison to the prior study where it had measured 4.5 x 1.9 x 1.6 cm There is a single nodule visualized in the midpole of the right lobe. #1- Location: Midpole Size: 0.3 x 0.5 x 0.3 cm demonstrating subtle increase in comparison to the prior study where it had measured 0.3 x 0.4 x 0.3 cm. Composition: 2 Echogenicity: 2 Shape: 0 Margins: 0 Echogenic Foci: 0 Total points 4, TIRADS level TR4 LEFT THYROID LOBE: The left lobe of the thyroid gland is unremarkable in size demonstrating homogenous echogenicity and unremarkable vascularity. The left lobe of the thyroid gland measures 4.4 x 1.5 x 1.0 cm demonstrating no significant change in comparison to the prior study where it had measured 4.4 x 1.5 x 1.4 cm. A single nodule is visualized in the midpole of the left lobe. #2- Location: Midpole Size: 0.4 x 0.4 x 0.3 cm demonstrating no significant change in comparison to the prior study where it had measured 0.5 x 0.4 x 0.3 cm.. Composition: 2 Echogenicity: 1 Shape: 0 Margins: 0 Echogenic Foci: 0 Total points 3, TIRADS level TR3 ISTHMUS: The isthmus demonstrates homogenous echogenicity and measures 0.3 cm in AP diameter. No evidence of nodules within the isthmus. US/Thyroid IMPRESSION: Unremarkable echogenicity of the thyroid gland. 0.5 cm TR 4 nodule visualized in the midpole of the right lobe of the thyroid gland. A 0.4 cm TR 3 nodule visualized in the midpole of the left lobe. TI-RADS follow up recommendations: TR1: Benign (0pts) No FNA biopsy. TR2: Not suspicious (2 pts) No FNA biopsy. TR3: Mildly suspicious (3 pts) FNA biopsy if nodule at least 2.5cm; follow if at least 1.5cm. TR4: Moderately suspicious (4-6 pts) FNA biopsy if nodule at least 1.5cm; follow if at least 1 cm. TR5: Highly suspicious (at least 7 pts) FNA if nodule at least 1cm; follow if at least 0.5cm. Electronically Signed: Michele Conner MD at 11:03 EDT ,
== END | disposition home or self-care (01) ==
LOC: US 07:48
PROVIDERS: PCP Internal Medicine; Visit Provider Nurse Practitioner Family
DX: E04.1 Nontoxic single thyroid nodule (principal); E03.8 Other specified hypothyroidism; E06.3 Autoimmune thyroiditis
CPT/HCPCS: 76536

== ENCOUNTER → 2022-11-08 | Outpatient (CLI) | payer MEDICAID, SELFPAY ==
[2022-11-08 12:55] LABS: Absolute Lymphocyte Count 2.62 X10^3/uL (0.83-4.51); Absolute Neutrophil Count 4.7 X10^3/uL (2.0-7.7); Basophil# 0.05 X10^3/uL; Basophil% 0.6 % (0-1); Eosinophil# 0.16 X10^3/uL; Hematocrit 36.8 % (37-47); Hemoglobin 11.9 g/dL (12.0-15.0); Lymphocyte # 2.62 X10^3/ul (0.83-4.51); Lymphocyte % 32.8 % (19-41); Mean Corp Hgb Conc 32.3 g/dL (32-36); Mean Corpuscular Hgb 28.5 pg (27.0-32.0); Mean Platelet Vol. 10.5 fl (6.2-12.0); Monocyte# 0.42 X10^3/uL; Monocyte% 5.3 % (0-10); NRBC Flagged by Analyzer 0 % (0-5); Neutrophil # 4.73 X10^3/uL (2.7-7.7); Platelet Count 343 K/mm3 (150-450); RBC Distribution Width CV 14.2 % (11.6-14.6); RBC Distribution Width SD 45.5 fl (35.1-43.9); Red Blood Count 4.18 M/mm3 (4.2-5.4)
[2022-11-08 13:10] LABS: Vitamin B12 430 pg/mL (211-911); Vitamin D,25 Hydroxy 25.9 ng/mL
[2022-11-08 13:32] LABS: Anion Gap 8 (5-15); BUN 15 mg/dL (7-18); BUN/Creat Ratio 20.7 RATIO (10-20); Calcium,Total 9.2 mg/dL (8.5-10.1); Chloride 108 mmol/L (98-107); Creatinine, Serum 0.72 mg/dL (0.55-1.02); EST Glomerular Filtration Rate 105 mL/min (>60); Est Glom Filt Rate - Afr Amer 128 mL/min (>60); Glucose 106 mg/dL (74-106); Magnesium 2.5 mg/dL (1.6-2.6); Potassium 4.2 mmol/L (3.5-5.1); Sodium Level 139 mmol/L (136-145); T4 Free Direct 1.07 ng/dL (0.76-1.46); Thyroid Stim Hormone (TSH) 2.78 uIU/mL (0.358-3.74)
== END | disposition home or self-care (01) ==
LOC: BIMLAB 09:20
PROVIDERS: Nurse Practitioner Family; PCP Internal Medicine; Referring Provider Physician Assistant; Visit Provider Physician Assistant
DX: R00.2 Palpitations (principal); D64.9 Anemia, unspecified; E03.9 Hypothyroidism, unspecified; E55.9 Vitamin D deficiency, unspecified; E53.8 Deficiency of other specified B group vitamins
CPT/HCPCS: 36415; 80048; 82306; 82607; 83735; 84439; 84443; 85025

== ENCOUNTER 2023-05-22 14:57 | Emergency (ER) | payer OTHER, MEDICAID, SELFPAY ==
[2023-05-22 14:58] VITALS: BP 147/95; PULSE 70; RESP 14; TEMP 36.7; O2SAT 99; BMI 51.2
--- NOTE | 2023-05-22 15:40 | ED.VIS.FEGU ---
HPI HPI - Female History of Present Illness Chief Complaint: Vag Bleeding Informant: patient Pain Onset: Weeks Narrative Narrative: Patient presents at recommendation Dr. Nikolas Montez for lab work and IV fluids. Patient has had vaginal bleeding for the last 11 weeks. She states it had been about the heaviness of a normal period, but has increased to going through a pad an hour for the last 4 days. She has a history of endometriosis. She is currently scheduled have a D&C next week. She complains of generalized fatigue and dizziness. She does have abdominal cramping. [facility] Medical History Abdominal pain Allergic rhinitis Anemia Anxiety Back problem Bilateral lower extremity edema BILATERAL RENAL DUPLICATION BPPV (benign paroxysmal positional vertigo) Chronic neck pain Chronic RUQ pain Constipation Dermatographism Endometriosis determined by laparoscopy Fibromyalgia Frequent headaches Gastric reflux GERD (gastroesophageal reflux disease) History of Holter monitoring History of IBS History of renal disease Hot flashes Hypersomnia Hypertension Iron deficiency anemia Irritable bowel syndrome with constipation Left wrist pain Leg cramps Migraine headache Morbid obesity Muscle spasm Non-smoker PCOS (polycystic ovarian syndrome) Pharyngitis Positional lightheadedness Rectal bleeding Sinusitis Skin lesion of scalp Thyroid disease Upper respiratory infection Vitamin B12 deficiency Vitamin D deficiency Vitamin deficiency Wears glasses Home Medications propranolol 80 mg capsule,24 hr,extended release 80 mg PO DAILY #90 caps 05/15/22 [Rx Last Taken Unknown] buspirone 5 mg tablet 5 mg PO BID #180 tabs 05/26/22 [Rx Last Taken Unknown] ferrous sulfate 325 mg (65 mg iron) tablet 325 mg PO DAILY 06/09/22 [History Last Taken Unknown] blood pressure monitor (Blood Pressure Kit) #1 ea 09/26/22 [Rx Last Taken Unknown] hydrochlorothiazide 25 mg tablet 25 mg PO QAM #90 tabs 10/03/22 [Rx Last Taken Unknown] esomeprazole magnesium 20 mg capsule,delayed release (Nexium) 20 mg PO DAILY 11/08/22 [History Last Taken Unknown] amitriptyline 25 mg tablet See Rx Instructions .Route .COMPLEX #30 tabs 11/27/22 [Rx Last Taken Unknown] levocetirizine 5 mg tablet (Xyzal) 5 mg PO DAILY PRN allergy symptoms #90 tabs 12/18/22 [Rx Last Taken Unknown] levothyroxine 125 mcg tablet 125 mcg PO DAILY #90 tabs 12/28/22 [Rx Last Taken Unknown] ergocalciferol (vitamin D2) 1,250 mcg (50,000 unit) capsule 50,000 unit PO QWEEK #8 caps 02/02/23 [Rx Last Taken Unknown] escitalopram oxalate 10 mg tablet 10 mg PO DAILY #90 tabs 03/06/23 [Rx Last Taken Unknown] fluticasone propionate 50 mcg/actuation nasal spray,suspension 1 spray intranasal BID PRN allergies, congestion #16 grams 03/06/23 [Rx Last Taken Unknown] meclizine 25 mg tablet 25 mg PO BID PRN dizziness #30 tabs 03/06/23 [Rx Last Taken Unknown] medroxyprogesterone 10 mg tablet (Provera) 10 mg PO DAILY #10 tabs 05/22/23 [Rx Last Taken Unknown] Allergy/AdvReac Type Severity Reaction Status Date / Time cefdinir [From Omnicef] Allergy Intermediate Hives Verified 05/22/23 14:58 Family History Mother Diabetes Father CHF (congestive heart failure) Other Anemia Angina pectoris Anxiety Arthritis Autoimmune disorder Bleeding disorder Depression Heart disease High cholesterol Hypertension Myocardial infarction Uterine cancer Surgical History History of appendectomy History of colonoscopy (~09/2021) History of esophagogastroduodenoscopy (EGD) (~09/2021) History of laparoscopy History of tonsillectomy Social History Smoking Status: Never smoker alcohol intake: never substance use type: does not use what type of physical activity do you participate in: none ROS ROS ED Constitutional Constitutional ED: Denies chills or fever(s) Eyes Eyes: Denies change in vision or discharge from eye(s) ENT ENT ED: Denies discharge from eye(s), rhinorrhea or sore throat Cardiovascular Cardiovascular: Denies chest pain or palpitations Respiratory/Chest Respiratory/Chest: Denies cough or dyspnea Gastrointestinal Gastrointestinal: Reports abdominal pain; Denies diarrhea, nausea or vomiting Genitourinary Genitourinary ED: Denies difficulty urinating or dysuria Musculoskeletal Musculoskeletal: Denies back pain or extremity pain Integumentary Denies Abrasions or rash Neurologic Neurologic: Reports weakness; Denies headache(s) Psychiatric Psychiatric: Denies anxiety or depression Allergic/Immunologic Allergic/Immunologic ED: Denies lip swelling or urticaria EXAM Physical Exam Const Vital Signs: 05/22/23 14:58 05/22/23 16:31 Temperature 98.1 F Temperature Source Temporal Pulse Rate 70 Pulse Rate [Lying] 66 Pulse Rate [Sitting (for 1 minute prior to obtaining)] 60 Pulse Rate [Standing (for 1 minute prior to obtaining)] 69 Respiratory Rate 14 Blood Pressure 147/95 H Blood Pressure [Lying] 141/77 H Blood Pressure [Sitting (for 1 minute prior to obtaining)] 135/85 H Blood Pressure [Standing (for 1 minute prior to obtaining)] 143/89 H Blood Pressure Mean 112 Blood Pressure Mean [Lying] 98 Blood Pressure Mean [Sitting (for 1 minute prior to obtaining)] 101 Blood Pressure Mean [Standing (for 1 minute prior to obtaining)] 107 Pulse Ox 99 Oxygen Delivery Method Room Air Positive well nourished and well developed General Appearance ED: well developed HEENT Reports normocephalic and head/scalp atraumatic Eyes PERRL and EOMs intact bilaterally Neck supple Chest Wall inspection of chest normal and palpation of chest normal Resp normal respiratory effort and clear to auscultation bilaterally Cardio regular rate and regular rhythm GI normal to inspection, nondistended, normoactive bowel sounds Palpation: soft Extremity normal to inspection Neuro oriented x3 and no sensory deficits noted Sensorium / Orientation: alert Motor Exam: strength 5/5 throughout Psych mental status grossly normal Skin no rashes or lesions noted MDM MDM MDM Narrative Medical decision making narrative: Patient placed on factory machine computer operator. EKG obtained to evaluate for cardiac arrhythmia/ischemia. Labwork obtained to evaluate for leukocytosis, anemia, and electrolyte derangement. Patient given a liter of IV fluids. Following this orthostatic vital signs are obtained. Lab Data Attestation: I reviewed the patient's lab results. Labs: Laboratory Results - last 24 hr 05/22/23 05/22/23 05/22/23 15:13 15:31 15:38 WBC 9.9 RBC 4.68 Hgb 12.8 Hct 41.2 MCV 88.0 MCH 27.4 MCHC 31.1 L RDW Std Deviation 43.4 RDW Coeff of Brittani 13.4 Plt Count 261 MPV 12.3 H Immature Gran % (Auto) 0.300 Neut % (Auto) 59.8 Lymph % (Auto) 32.8 Haakon % (Auto) 4.6 Eos % (Auto) 2.0 Baso % (Auto) 0.5 Absolute Neuts (auto) 5.9 Absolute Lymphs (auto) 3.24 Nucleated RBC % 0 Platelet Estimate ADEQUATE Plt Morphology Comment LARGE RBC Morphology N CHROM Anisocytosis RARE PT 12.9 INR 1.0 APTT 31.1 Sodium 137 Potassium 4.3 Chloride 108 H Carbon Dioxide 23.0 Anion Gap 6 BUN 14 Creatinine 0.74 Estim Creat Clear Calc 132.15 Est GFR (MDRD) Af Amer 125 Est GFR (MDRD) Non-Af 103 BUN/Creatinine Ratio 19.0 Glucose 86 Calcium 9.1 Serum , Qual NEGATIVE Treatment and Re-Evaluation Narrative: CBC is unremarkable with a hemoglobin of 12.8. Coags are normal. Chemistry studies unremarkable. test negative. Orthostatic vital signs are obtained and normal. EKG is sinus rhythm at 71 with no acute ischemia and no arrhythmia. I spoke with Dr. Nikolas Montez, the patient's [employer]. She would like the patient placed on Provera 10 mg daily for the next 10 days until she can have her D&C. Patient is comfortable this plan. Prescription will be sent to the pharmacy for her. Discharge Plan Triage Chief Complaint: Vag Bleeding ED Provider: Aurea Loya Dx/Rx/DC Orders Clinical Impression: Menorrhagia Instructions: ED Heavy Menstrual Bleeding Prescriptions: New medroxyprogesterone [Provera] 10 mg tablet 10 mg PO DAILY Qty: 10 0RF No Action ferrous sulfate 325 mg (65 mg iron) tablet 325 mg PO DAILY (DME) blood pressure monitor [Blood Pressure Kit] Kit See Rx Instructions .ROUTE .MEDSUPPLY Qty: 1 0RF Rx Instructions: Check blood pressure daily for hypertension I10 esomeprazole magnesium [Nexium] 20 mg capsule,delayed release(DR/EC) 20 mg PO DAILY ergocalciferol (vitamin D2) 1,250 mcg (50,000 unit) capsule 50,000 unit PO QWEEK Qty: 8 3RF propranolol 80 mg capsule,extended release 24 hr 80 mg PO DAILY Qty: 90 3RF buspirone 5 mg tablet 5 mg PO BID Qty: 180 1RF hydrochlorothiazide 25 mg tablet 25 mg PO QAM Qty: 90 1RF amitriptyline 25 mg tablet See Rx Instructions .ROUTE .COMPLEX Qty: 30 2RF Dose Instruction: take 1 tablet by mouth at bedtime Rx Instructions: take 1 tablet by mouth at bedtime levocetirizine [Xyzal] 5 mg tablet 5 mg PO DAILY PRN (Reason: allergy symptoms) Qty: 90 1RF levothyroxine 125 mcg tablet 125 mcg PO DAILY Qty: 90 0RF fluticasone propionate 50 mcg/actuation spray,suspension 1 spray intranasal BID PRN (Reason: allergies, congestion) Qty: 16 3RF Rx Instructions: administer into each nostril meclizine 25 mg tablet 25 mg PO BID PRN (Reason: dizziness) Qty: 30 1RF escitalopram oxalate 10 mg tablet 10 mg PO DAILY Qty: 90 1RF Primary Care Provider: Raji Edwards Referrals: Raji Edwards MD [Primary Care Provider] - Fay Hager MD [Med Staff - Active Staff] - [facility] appointment Disposition Disposition: Home, Self Care
[2023-05-22] MEDS: 0.9% Normal Saline 1,000 ML 1000 ML IV (15:48)
[2023-05-22] MEDS: 0.9% Normal Saline 1,000 ML 150 ML IV (15:48)
[2023-05-22 15:51] LABS: Absolute Lymphocyte Count 3.24 X10^3/uL (0.83-4.51); Absolute Neutrophil Count 5.9 X10^3/uL (2.0-7.7); Basophil# 0.05 X10^3/uL; Basophil% 0.5 % (0-1); Hematocrit 41.2 % (37-47); Hemoglobin 12.8 g/dL (12.0-15.0); Lymphocyte # 3.24 X10^3/ul (0.83-4.51); Lymphocyte % 32.8 % (19-41); Mean Corp Hgb Conc 31.1 g/dL (32-36); Mean Corpuscular Hgb 27.4 pg (27.0-32.0); Mean Platelet Vol. 12.3 fl (6.2-12.0); Monocyte# 0.45 X10^3/uL; Monocyte% 4.6 % (0-10); NRBC Flagged by Analyzer 0 % (0-5); Neutrophil # 5.91 X10^3/uL (2.7-7.7); Neutrophil % 59.8 % (47-70); POSITIVE COUNT YES; Platelet Count 261 K/mm3 (150-450); RBC Distribution Width CV 13.4 % (11.6-14.6); RBC Distribution Width SD 43.4 fl (35.1-43.9); Red Blood Count 4.68 M/mm3 (4.2-5.4); White Blood Count 9.9 K/mm3 (4.4-11.0)
[2023-05-22 16:01] LABS: Prothrombin Time (Protime)PT. 12.9 SECONDS (11.7-14.9)
[2023-05-22 16:02] LABS: Partial Thromboplast Time 31.1 Seconds (24.1-36.2)
[2023-05-22 16:06] LABS: Anion Gap 6 (5-15); BUN 14 mg/dL (7-18); Calcium,Total 9.1 mg/dL (8.5-10.1); Chloride 108 mmol/L (98-107); Creatinine, Serum 0.74 mg/dL (0.55-1.02); EST Glomerular Filtration Rate 103 mL/min (>60); Est Glom Filt Rate - Afr Amer 125 mL/min (>60); Estimated Creatinine Clearance 132.15 ml/min; Glucose 86 mg/dL (74-106); Potassium 4.3 mmol/L (3.5-5.1); Sodium Level 137 mmol/L (136-145)
[2023-05-22 16:19] LABS: Differential Indicated SCAN CRITERIA MET
[2023-05-22 16:31] VITALS: BP 135/85; BP 141/77; BP 143/89; PULSE 60; PULSE 66; PULSE 69
[2023-05-22 16:38] LABS: Platelet Estimate ADEQUATE (ADEQ); Platelet Morphology LARGE; Red Cell Morphology N CHROM NORMAL (NORM C&C)
[2023-05-22 16:39] LABS: Anisocytosis RARE
[2023-05-22 16:40] LABS: Internal QC Validated? YES +Cl - CLEAR BKGD; Pregnancy, Serum, hCG Quali. NEGATIVE Negative
[2023-05-22 17:06] VITALS: PULSE 61; RESP 18; O2SAT 100
== END 2023-05-22 17:22 | disposition home or self-care (01) ==
PROVIDERS: Emergency Provider Emergency Medicine; PCP Internal Medicine; Visit Provider Emergency Medicine
DX: N92.0 Excessive and frequent menstruation with regular cycle (principal); I10 Essential (primary) hypertension; Z79.899 Other long term (current) drug therapy
CPT/HCPCS: 80048; 84703; 85025; 85610; 85730; 93005; 96360; 96361; 99285; J7030; A4216

== ENCOUNTER 2023-05-31 12:59 | Day surgery (SDC) | payer OTHER, MEDICAID, SELFPAY ==
[2023-05-31] VITALS (10 sets, daily range): BP systolic 120–142; BP diastolic 69–103; PULSE 59–73; RESP 16–18; TEMP 36.1–36.6; O2SAT 92–100; BMI 51.0
--- NOTE | 2023-05-31 | EMB_PTH ---
PATIENT: ADELA BURTON LOC: [facility] [place] U#:[id number] AGE/SX: ROOM: RE05/31/[address]: Dr. Fay Montez MD : 2000 BED: DIS: 05/31/2023 SPEC #: [id number] RECD: 05/31/23 15:46 STATUS: WAQAS RELyndsey #: [id number] REENA: 05/31/23 00:[address]: Fay Hager DEPT: SURGICAL PATHOLOGY RECD BY: Andrade Mclean ENTERED: 06/01/23 09:51 SP TYPE: ENDOM BX/C OTHR DR: Dr. Raji Edwards MD Tissues: Endometrium, NOS Procedures: Surgery Specimen Level IV HEADER OPERATION: Hysteroscopy, dilatation and curettage, Liletta IUD insertion PRE-OP DIAGNOSIS: Excessive and frequent menstruation with irregular cycle TISSUE SUBMITTED: Endometrial curettings MICROSCOPIC DIAGNOSIS Endometrium, curettings: Dyssynchronous endometrium with stromal and focal glandular breakdown. Rare fragments of benign superficial endocervix. AM:lázaro 06/04/2023 MICROSCOPIC DESCRIPTION Slides are reviewed. GROSS DESCRIPTION Received in fixative is one container labeled with the patient's name and designated endometrial curettings. The specimen consists of multiple fragments of hemorrhagic soft tissue that in aggregate measure 2.0 x 2.0 x 0.2 cm. The specimen is totally submitted in one cassette. / SJ:lázaro 06/01/2023 TC:5 CPT: 25922
[2023-05-31] MEDS: Lactated Ringers 1,000 ML 15 ML IV (13:30)
[2023-05-31 13:34] LABS: Internal QC Validated? YES +Cl - CLEAR BKGD; Pregnancy, Urine Negative Negative
--- NOTE | 2023-05-31 13:42 | HP.PCM_ITS ---
HPI - General General Date of Admission: 05/31/23 Date of Service: 05/31/23 Chief Complaint: scheduled d&C HPI Narrative ADELA BURTON, is a 22 F who presents fo hysteroscopy, D&C, levonorgestrel IUD placement. She has a history of prolonged menstrual bleed over the last 2 months despite progestin therapy. [facility] Medical History Abdominal pain Allergic rhinitis Anemia Anxiety Back problem Bilateral lower extremity edema BILATERAL RENAL DUPLICATION BPPV (benign paroxysmal positional vertigo) Chronic neck pain Chronic RUQ pain Constipation Dermatographism Endometriosis determined by laparoscopy Fibromyalgia Frequent headaches Gastric reflux GERD (gastroesophageal reflux disease) History of Holter monitoring History of IBS History of renal disease Hot flashes Hypersomnia Hypertension Iron deficiency anemia Irritable bowel syndrome with constipation Left wrist pain Leg cramps Migraine headache Morbid obesity Muscle spasm Non-smoker PCOS (polycystic ovarian syndrome) Pharyngitis Positional lightheadedness Rectal bleeding Sinusitis Skin lesion of scalp Thyroid disease Upper respiratory infection Vitamin B12 deficiency Vitamin D deficiency Vitamin deficiency Wears glasses Home Medications propranolol 80 mg capsule,24 hr,extended release 80 mg PO DAILY #90 caps 05/15 [Rx Last Taken Unknown] buspirone 5 mg tablet 5 mg PO BID #180 tabs 05/26/22 [Rx Last Taken Unknown] ferrous sulfate 325 mg (65 mg iron) tablet 325 mg PO DAILY 06/09/22 [History Last Taken Unknown] blood pressure monitor (Blood Pressure Kit) #1 ea 09/26/22 [Rx Last Taken Unknown] hydrochlorothiazide 25 mg tablet 25 mg PO QAM #90 tabs 10/03/22 [Rx Last Taken Unknown] esomeprazole magnesium 20 mg capsule,delayed release (Nexium) 20 mg PO DAILY 11/08/22 [History Last Taken Unknown] amitriptyline 25 mg tablet See Rx Instructions .Route .COMPLEX #30 tabs 11/27/22 [Rx Last Taken Unknown] levocetirizine 5 mg tablet (Xyzal) 5 mg PO DAILY PRN allergy symptoms #90 tabs 12/18/22 [Rx Last Taken Unknown] levothyroxine 125 mcg tablet 125 mcg PO DAILY #90 tabs 12/28/22 [Rx Last Taken Unknown] ergocalciferol (vitamin D2) 1,250 mcg (50,000 unit) capsule 50,000 unit PO QWEEK #8 caps 02/02/23 [Rx Last Taken Unknown] escitalopram oxalate 10 mg tablet 10 mg PO DAILY #90 tabs 03/06/23 [Rx Last Taken Unknown] fluticasone propionate 50 mcg/actuation nasal spray,suspension 1 spray intranasal BID PRN allergies, congestion #16 grams 03/06/23 [Rx Last Taken Unknown] meclizine 25 mg tablet 25 mg PO BID PRN dizziness #30 tabs 03/06/23 [Rx Last Taken Unknown] medroxyprogesterone 10 mg tablet (Provera) 10 mg PO DAILY #10 tabs 05/22/23 [Rx Last Taken Unknown] empagliflozin 10 mg tablet (Jardiance) mg 05/31/23 [History Last Taken 05/30/23 22:00 10 mg] Allergy/AdvReac Type Severity Reaction Status Date / Time cefdinir [From Omnicef] Allergy Intermediate Hives Verified 05/22/23 14:58 Family History Mother Diabetes Father CHF (congestive heart failure) Other Anemia Angina pectoris Anxiety Arthritis Autoimmune disorder Bleeding disorder Depression Heart disease High cholesterol Hypertension Myocardial infarction Uterine cancer Surgical History History of appendectomy History of colonoscopy (~09/2021) History of esophagogastroduodenoscopy (EGD) (~09/2021) History of laparoscopy History of tonsillectomy Social History Smoking Status: Never smoker alcohol intake: never substance use type: does not use what type of physical activity do you participate in: none Vital Signs Vital Signs Vital Signs: 05/31/23 13:35 05/31/23 13:35 Temperature 97.2 F L Temperature Source Temporal Pulse Rate 71 Respiratory Rate 16 Respiratory Pattern Normal Blood Pressure 125/86 H Blood Pressure Mean 99 Blood Pressure Source Monitor Blood Pressure Position Semi-Fowlers Blood Pressure Location Left Forearm Pulse Ox 97 Oxygen Delivery Method Room Air Weight Weight: 166 kg Body Mass Index (BMI) 51.0 Physical Exam Const alert, oriented x3 and no apparent distress HEENT normocephalic Resp normal respiratory effort, normal air movement and clear to auscultation bilaterally Cardio regular rate and regular rhythm GI normal to inspection, nondistended, normoactive bowel sounds, non-tender and non-distended Results Lab / Micro Data Attestation: I reviewed the patient's lab results. 05/31/23 13:35 Labs: Laboratory Results - last 24 hr 05/31/23 13:00: Urine Test Negative 05/22/23 Hgb 9.9>12.8/41.2<261 Assessment & Plan Assessment/Plan (1) Excessive and frequent menstruation with irregular cycle: PLAN: Plan to proceed with hysteroscopy, dilation and curettage, levonogestrel IUD as planned. Patient and family given opportunity to ask questions and questions answered to their satisfaction.
[2023-05-31 13:48] LABS: Hematocrit 37.5 % (37-47); Hemoglobin 11.9 g/dL (12.0-15.0); Mean Corp Hgb Conc 31.7 g/dL (32-36); Mean Corpuscular Hgb 27.4 pg (27.0-32.0); Mean Corpuscular Volume 86.4 fL (81-99); Mean Platelet Vol. 10.6 fl (6.2-12.0); Platelet Count 372 K/mm3 (150-450); RBC Distribution Width CV 13.2 % (11.6-14.6); RBC Distribution Width SD 41.2 fl (35.1-43.9); Red Blood Count 4.34 M/mm3 (4.2-5.4); White Blood Count 9.5 K/mm3 (4.4-11.0)
[2023-05-31 14:02] LABS: Prothrombin Time (Protime)PT. 12.9 SECONDS (11.7-14.9)
[2023-05-31 14:03] LABS: Partial Thromboplast Time 31.2 Seconds (24.1-36.2)
[2023-05-31] MEDS: Lidocaine 1% (30 ml sdv) 30 ML Vial (14:50)
[2023-05-31] MEDS: Levonorgestrel IUD (Liletta) 1 EACH INTRA-UTER (14:57)
--- NOTE | 2023-05-31 15:16 | OP.PCM_ITS ---
Problems Associated Problem List Diagnoses (1) Excessive and frequent menstruation with irregular cycle: Report of Operation Date of Procedure: 05/31/23 Pre-Operative Diagnosis: Abnormal uterine bleeding Post-Operative Diagnosis: Abnormal uterine bleeding Surgery/Procedure Performed:: 1. Hysteroscopy 2. Dilation and curettage 3. Levonorgestrel IUD placement Description of Surgical Findings:: thin endometrium, normal uterine cavity shape Surgeon: Fay Hager Type of Anesthesia: Local MAC Anesthesiologist: Rafal Lees Specimen's removed: endometrial curettings Estimated Blood Loss (mL): <10cc Fluids Replaced: 900 mL Description of Procedure: Patient was brought to the operating room and signed and performed. She is placed in the dorsal supine position and and induced under MAC. She was repositioned into dorsal lithotomy. The perineum was prepped and straight catheterization of the bladder was performed. She was subsequently draped and placed into high lithotomy. A speculum was placed vaginally and the cervix was grasped at the anterior lip cervical lip using a single-tooth tenaculum. A paracervical block was placed using a total of 10 cc of 1% lidocaine. The ut erus sounded to 9 cm. The cervix was subsequently dilated and hysteroscopy performed demonstrating a thin endometrium without visible polyps or fibroids. The scope was removed and sharp curettage was performed. A levonorgestrel IUD was placed with the Liletta applicator and the strings cut to 2 cm from the external os. Hysteroscopy was again performed with no evidence of uterine perforation. The procedure was complete. The patient was placed into dorsal supine, awakened and transferred to the recovery room without complication. Sponge counts were correct x2. Complications None Admit VTE Documentation VTE Present on Admission: No VTE Mechan Device Prophylaxis: [facility]'s VTE Pharm Prophylaxis ordered?: No Procedures Urinary/Genital [id number]: [id number] Hysteroscopy, EMC,Polypectomy (and [id number] Insert IUD )
--- NOTE | 2023-05-31 15:24 | DCINST_ITS ---
Discharge Instructions Diet Discharge Diet: No restrictions Activity Discharge Activity: Return to Normal Activity May resume sexual activity in: 4 weeks Dressing / Incision Call your doctor if you observe: Using more than 1 pad per hour, Shortness of breath, Chest pain, Calf discomfort, Uncontrolled pain and - (Fever of 100.4 or higher) Follow Up Care Please Follow Up With: Fay Montez MD When: 4 weeks for post op visit Test Results: Test results from this visit will be discussed in further detail at your follow- up appointment, if applicable. Discharge Plan Admission Primary Reason for Your Visit: Hysteroscopy, D&C, IUD placement Attending Provider: Fay Hager Primary Care Provider: Raji Edwards Instructions Patient Instructions: Hysteroscopy Discharge Orders/Prescriptions Prescriptions: New ibuprofen 600 mg tablet 600 mg PO TID PRN (Reason: pain) Qty: 30 0RF oxycodone 5 mg capsule 5 mg PO Q6H PRN (Reason: pain (scale score 7-10)) 3 Days Qty: 3 0RF Continued ferrous sulfate 325 mg (65 mg iron) tablet 325 mg PO DAILY (DME) blood pressure monitor [Blood Pressure Kit] Kit See Rx Instructions .ROUTE .MEDSUPPLY Qty: 1 0RF Rx Instructions: Check blood pressure daily for hypertension I10 esomeprazole magnesium [Nexium] 20 mg capsule,delayed release(DR/EC) 20 mg PO DAILY ergocalciferol (vitamin D2) 1,250 mcg (50,000 unit) capsule 50,000 unit PO QWEEK Qty: 8 3RF medroxyprogesterone [Provera] 10 mg tablet 10 mg PO DAILY Qty: 10 0RF Hold Instructions: Ordered Jardiance 10 mg tablet Patient Comments: take 1 tablet by mouth once daily propranolol 80 mg capsule,extended release 24 hr 80 mg PO DAILY Qty: 90 3RF buspirone 5 mg tablet 5 mg PO BID Qty: 180 1RF hydrochlorothiazide 25 mg tablet 25 mg PO QAM Qty: 90 1RF amitriptyline 25 mg tablet See Rx Instructions .ROUTE .COMPLEX Qty: 30 2RF Dose Instruction: take 1 tablet by mouth at bedtime Rx Instructions: take 1 tablet by mouth at bedtime levocetirizine [Xyzal] 5 mg tablet 5 mg PO DAILY PRN (Reason: allergy symptoms) Qty: 90 1RF levothyroxine 125 mcg tablet 125 mcg PO DAILY Qty: 90 0RF fluticasone propionate 50 mcg/actuation spray,suspension 1 spray intranasal BID PRN (Reason: allergies, congestion) Qty: 16 3RF Rx Instructions: administer into each nostril meclizine 25 mg tablet 25 mg PO BID PRN (Reason: dizziness) Qty: 30 1RF escitalopram oxalate 10 mg tablet 10 mg PO DAILY Qty: 90 1RF Referrals / Follow Up: Raji Edwards MD [Primary Care Provider] - Disposition Disposition (needs filled in before D/C Order can be placed): Home, Self Care
[2023-05-31] MEDS: Scopolamine 1mg/72hr Patch 1 PATCH TD (15:57)
[2023-05-31] MEDS: Oxycodone/Apap 5/325 Tablet PO (16:35)
== END 2023-05-31 17:15 | disposition home or self-care (01) ==
LOC: SDC 13:00 → AC 13:01
PROVIDERS: Anesthesiology; PCP Internal Medicine; Referring Provider Obstetrics & Gynecology; Visit Provider Obstetrics & Gynecology
PROC: 0UDB8ZZ Extraction of Endometrium, Via Natural or Artificial Opening Endoscopic (ICD-10-PCS; CPT 58558; principal; 2023-05-31 14:20)
DX: N93.9 Abnormal uterine and vaginal bleeding, unspecified (principal); E66.01 Morbid (severe) obesity due to excess calories; Z68.43 Body mass index [BMI] 50.0-59.9, adult; N92.1 Excessive and frequent menstruation with irregular cycle; H81.10 Benign paroxysmal vertigo, unspecified ear; I10 Essential (primary) hypertension; F41.1 Generalized anxiety disorder; E55.9 Vitamin D deficiency, unspecified; E06.3 Autoimmune thyroiditis; K21.9 Gastro-esophageal reflux disease without esophagitis; Z79.899 Other long term (current) drug therapy; Z30.430 Encounter for insertion of intrauterine contraceptive device
CPT/HCPCS: 58558; 58300; 00952; 81025; 85027; 85610; 85730; 86850; 86900; 86901; 88305; J7120; J2405

== ENCOUNTER → 2025-08-19 | Outpatient (CLI) | payer OTHER, SELFPAY ==
[2025-08-26 11:08] LABS: HPV APTIMA, High Risk Negative (Negative)
== END | disposition home or self-care (01) ==
LOC: LABSPEC 08:00
PROVIDERS: PCP Nurse Practitioner Family; Visit Provider Nurse Practitioner Family
DX: Z12.4 Encounter for screening for malignant neoplasm of cervix (principal)
CPT/HCPCS: 87624; 88175; G0145